=== PATIENT | female | born 1985 | race Caucasian/White ===

== ENCOUNTER → 2018-04-04 09:49 | Outpatient (CLI) | payer MEDICAID, SELFPAY ==
[2018-04-04 12:37] LABS: hCG Titer Quant., Serum 337 mIU/mL (<9 non-preg)
[2018-04-04 15:07] LABS: Chlamydia Trachomatis by PCR Negative (Negative); Neisserai gonorrhoeae by PCR Negative (Negative); Probe Check PASS; Sample Adequacy Control PASS; Specimen Processing Control PASS
[2018-04-10 09:41] LABS: HPV Reflexed? NOT INDICATED
== END ==
PROVIDERS: Visit Provider Obstetrics & Gynecology
DX: Z12.4 Encounter for screening for malignant neoplasm of cervix (principal); Z11.3 Encounter for screening for infections with a predominantly sexual mode of transmission; Z32.01 Encounter for pregnancy test, result positive
CPT/HCPCS: 36415; 84702; 87491; 87591; 88175; G0145

== ENCOUNTER → 2018-04-08 09:43 | Outpatient (CLI) | payer MEDICAID, SELFPAY ==
[2018-04-08 10:48] LABS: hCG Titer Quant., Serum 2263 mIU/mL (<9 non-preg)
== END ==
PROVIDERS: Visit Provider Obstetrics & Gynecology
DX: Z32.01 Encounter for pregnancy test, result positive (principal)
CPT/HCPCS: 36415; 84702

== ENCOUNTER → 2018-04-23 10:20 | Outpatient (CLI) | payer MEDICAID, SELFPAY ==
[2018-04-23 12:27] LABS: Color, Urine Yellow (Yellow); Glucose, Dipstick Normal (Normal); Ketone-Dipstick Negative (Negative); Leukocyte Esterase-Dipstick Negative /ul (Negative); Nitrite-Dipstick Negative (Negative); Occult Blood-Urine Negative /ul (Negative); Protein-Dipstick Negative (Negative); Specific Gravity, Urine 1.015 (1.002-1.030); Urine Bilirubin Dipstick Negative (Negative); Urine Clarity Clear (Clear); Urine Urobilinogen Normal (Normal)
[2018-04-23 12:34] LABS: Absolute Lymphocyte Count 1.65 X10^3/ul (0.83-4.51); Absolute Neutrophil Count 8.2 X10^3/uL (2.0-7.7); Basophil# 0.02 X10^3/uL; Basophil% 0.2 % (0-1); Eosinophil# 0.01 X10^3/uL; Eosinophils% 0.1 % (0-5); Hematocrit 39.1 % (37-47); Lymphocyte # 1.65 X10^3/ul (4.0); Lymphocyte % 15.6 % (19-41); Mean Corp Hgb Conc 33.2 g/gl (32-36); Mean Corpuscular Hgb 32.8 pg (27.0-32.0); Mean Corpuscular Volume 98.7 fL (81-99); Mean Platelet Vol. 10.3 fl (6.2-12.0); Monocyte# 0.71 X10^3/uL; Monocyte% 6.7 % (0-10); Neutrophil # 8.19 X10^3/uL (2.7-7.7); Neutrophil % 77.2 % (47-70); Platelet Count 300 K/mm3 (150-450); RBC Distribution Width CV 12.7 % (11.6-14.6); RBC Distribution Width SD 45.1 fl (35.1-43.9); Red Blood Count 3.96 M/mm3 (4.2-5.4); White Blood Count 10.6 K/mm3 (4.4-11.0)
[2018-04-23 12:35] LABS: POSITIVE COUNT NO; POSITIVE DIFFERENTIAL NO; POSITIVE MORPHOLOGY NO
[2018-04-23 12:51] LABS: Amphetamine Urine VISTA NEGATIVE (<1000 ng/mL); Barbiturate Urine VISTA NEGATIVE (< 200 ng/mL); Benzodiazepine Urine VISTA NEGATIVE (< 200 ng/mL); Cocaine Urine VISTA NEGATIVE (< 300 ng/mL); Ecstacy Urine VISTA NEGATIVE (< 500 ng/mL); Methadone Urine VISTA NEGATIVE (< 300 ng/mL); PCP Urine VISTA NEGATIVE (< 25 ng/mL); THC Urine VISTA NEGATIVE (< 50 ng/mL); Vista UDS pH Range 5
[2018-04-23 13:02] LABS: Thyroid Stim Hormone (TSH) 1.25 uIU/mL (0.358-3.74)
[2018-04-24 10:29] LABS: HIV - WCH Non-Reactive (Nonreactive); Rubella IgG 120.5 IU/mL
[2018-04-25 17:22] LABS: HEPATITIS B SURFACE AG Negative (Negative); Hep C Antibodies <0.1 s/co ratio (0.0-0.9)
[2018-04-26 05:02] LABS: Prenatal RPR NONREACTIVE (NONREACTIVE)
== END ==
PROVIDERS: Visit Provider Obstetrics & Gynecology
DX: Z34.81 Encounter for supervision of other normal pregnancy, first trimester (principal)
CPT/HCPCS: 36415; 80307; 81002; 84443; 85025; 86703; 86762; 86803; 87340

== ENCOUNTER → 2018-09-17 08:44 | Outpatient (CLI) | payer MEDICAID, SELFPAY ==
[2018-09-17 10:44] LABS: Hematocrit 32.3 % (37-47); Hemoglobin 10.7 g/dl (12.0-15.0); Mean Corp Hgb Conc 33.1 g/gl (32-36); Mean Corpuscular Hgb 32.5 pg (27.0-32.0); Mean Corpuscular Volume 98.2 fL (81-99); Mean Platelet Vol. 9.7 fl (6.2-12.0); Platelet Count 260 K/mm3 (150-450); RBC Distribution Width CV 13.3 % (11.6-14.6); RBC Distribution Width SD 47.6 fl (35.1-43.9); Red Blood Count 3.29 M/mm3 (4.2-5.4); White Blood Count 7.4 K/mm3 (4.4-11.0)
[2018-09-17 10:46] LABS: Scan Indicated on CBC? Y/N NO
[2018-09-17 10:48] LABS: Glucose Challenge Gest 1H 50g 163 mg/dL (70-140)
--- OUTSIDE RECORDS SUMMARY | 2018-10-29 21:35 | XMS RPT_ITS ---
:1985 Author Organization OHIP Care Team Providers Name Role Phone GILLES DE LUNA Attending Unavailable GILLES DE LUNA Referring Unavailable Scout Lopez Attending Unavailable Destini Shoemaker Attending Unavailable Destini Shoemaker Attending Unavailable Destini Shoemaker Attending Unavailable Destini Shoemaker Attending Unavailable Destini Shoemaker Referring Unavailable Gilles De Luna Primary Care Unavailable PROBLEMS PROBLEMS DATE TYPE CONDITION / CODE ATTENDING STATUS SOURCE 09/17/2018 Unknown Z34.82 - Encounter Destini Shoemaker Active [facility] supervision [facility] other normal Hospital , second Repository trimester / Z34.82(ICD-10) 05/17/2018 Unknown Z34.81 - Encounter Destini Shoemaker Active [facility] for supervision of Community other normal Hospital , first Repository trimester / Z34.81(ICD-10) 05/14/2018 Unknown Z32.01 - Encounter Destini Shoemaker Active [facility] for Community test, result Hospital positive / Repository Z32.01(ICD-10) 12/26/2017 Active Paresthesia of NA Active [facility] skin / [facility] [place] R20.2(ICD-10) Repository 12/26/2017 Active Other skin changes NA Active [facility] / R23.8(ICD-10) [facility] [place] Repository 12/26/2017 Active Family history of NA Active [facility] diseases of the [facility] [place] skin and Repository subcutaneous tissue / Z84.0(ICD-10) 12/26/2017 Active Muscle weakness NA Active [facility] (generalized) / [facility] [place] M62.81(ICD-10) Repository 12/26/2017 Active Pain in right arm NA Active [facility] / M79.601(ICD-10) [facility] [place] Repository PROCEDURES PROCEDURES No Procedure Records FoundRESULTS RESULTS GESTATIONAL GTT 3HR Collected: 09/30/2018 Status: F Source: BESS 100G 7:30 AM [facility] REPOSITORY Order Comment: Is Patient Fasting? Y TYPE CODE TESTS RESULT OUT OF RANGE REFERENCE UNITS LAB L501.0660 <190 mg/dL Normal GLU GTT- 155 1HR LAB L501.0650 <105 mg/dL Normal GLU 79 GTT-FASTING Result Comment: GLUCOSE TOLERANCE TEST FOR Reference Interval GESTATIONAL DIABETES Fasting <105 mg/dL 1 hour <190 mg/dl 2 hour <165 mg/dl 3 hour <145 mg/dl LAB L501.0670 <165 mg/dL Normal GLU GTT- 2HR 131 LAB L501.0680 <145 L High GLU GTT- 3HR 154 Performed By: #### L500.4710 #### [facility] [place], [address] CBC-COMPLETE BLOOD CNT Collected: 09/17/2018 Status: F Source: BESS NO DIFF 8:50 AM [facility] REPOSITORY TYPE CODE TESTS RESULT OUT OF RANGE REFERENCE UNITS LAB L100.1000 4.4-11.0 K/mm3 Normal WBC 7.4 LAB L100.1200 4.2-5.4 M/mm3 Low RBC 3.29 LAB L100.1300 12.0-15.0 g/dl Low HGB 10.7 LAB L100.1400 37-47 % Low HCT 32.3 LAB L100.1500 81-99 fL Normal MCV 98.2 LAB L100.1600 27.0-32.0 pg High MCH 32.5 LAB L100.1700 32-36 g/gl Normal MCHC 33.1 LAB L100.1810 11.6-14.6 % Normal RDW CV 13.3 LAB L100.1820 35.1-43.9 fl High RDW SD 47.6 LAB L100.1900 150-450 K/mm3 Normal PLT 260 LAB L100.2000 6.2-12.0 fl Normal MPV 9.7 Performed By: #### L100.0500 #### [facility] [address] [place], [address] GLUCOSE CHALLENGE GEST Collected: 09/17/2018 Status: F Source: BESS 1H 50G 8:50 AM [facility] REPOSITORY TYPE CODE TESTS RESULT OUT OF RANGE REFERENCE UNITS LAB L501.0250 70-140 mg/dL High GLU GEST 163 50g 1H Performed By: #### L501.0250 #### [facility] [address] [place], [address] URINE DRUG SCREEN Collected: 04/23/2018 Status: F Source: BESS (VISTA) 10:26 AM [facility] REPOSITORY Order Comment: List of Drugs Taken or Suspected? UNK TYPE CODE TESTS RESULT OUT OF RANGE REFERENCE UNITS LAB L505.0075 TO BE Normal CONFIRMED Result Comment: CONFIRMATORY TESTING FOR ALL POSITIVE URINE DRUG SCREEN RESULTS WILL ONLY BE SENT OUT UPON PHYSICIAN ORDER. VISTA Urine Drug Screen methods provide only preliminary analytical test results. A more specific alternate chemical method must be used in order to obtain a confirmed analytical result. Gas chromatography/mass spectrometery (GC/MS) is the preferred confirmatory method. Clinical consideration and professional judgement should be applied to any drug of abuse test result, particularly when preliminary positive results are used. URINE TCA TESTING MUST BE ORDERED SEPARATELY. USE TEST MNEMONIC: [facility] LAB L505.5005 VISTA UDS PH 5 Normal LAB L505.5015 <1000 ng/mL AMPHETAMINES Normal NEGATIVE LAB L505.5025 < 200 ng/mL BARBITIURATES Normal NEGATIVE LAB L505.5035 < 200 ng/mL BENZODIAZIPINE Normal NEGATIVE LAB L505.5045 < 300 ng/mL COCAINE Normal NEGATIVE LAB L505.5055 < 500 ng/mL ECSTACY Normal NEGATIVE LAB L505.5065 < 300 ng/mL METHADONE Normal NEGATIVE LAB L505.5075 < 300 ng/mL OPIATES Normal NEGATIVE LAB L505.5085 < 25 ng/mL PCP Normal NEGATIVE LAB L505.5095 < 50 ng/mL THC Normal NEGATIVE Performed By: #### L505.4999 #### [facility] [address] [facility] [place], [place], [address] URINALYSIS, ROUTINE Collected: 04/23/2018 Status: F Source: [place] (DIPSTICK) 10:26 AM [facility] REPOSITORY Order Comment: How was Urine Obtained? Urine, Random TYPE CODE TESTS RESULT OUT OF RANGE REFERENCE UNITS LAB L400.3000 Yellow COLOR Normal Yellow LAB L400.3050 Clear Normal CLARITY Clear LAB L400.3200 Normal mg/dl Normal GLUCOSE, UR Normal LAB L400.3300 Negative mg/dL Normal BILIRUBIN URINE Negative LAB L400.3400 Negative mg/dl Normal KETONE UR Negative LAB L400.3465 1.002-1.030 Normal SP.GR. DIPSTX 1.015 LAB L400.3550 5.0 - 8.0 pH UR Normal 6.0 LAB L400.3600 Negative mg/dl PROT Normal DIPSTX Negative LAB L400.3700 Normal mg/dl Normal UROBILI Normal LAB L400.3750 Negative Normal NITRITE UR Negative LAB L400.3780 Negative /ul Normal OCCULT BLOOD-UR Negative LAB L400.3800 Negative /ul LEUK Normal ESTERASE Negative Performed By: #### L400.2010 #### [facility] [address] [facility] [place], [place], [address] CBC W/DIFF, AUTOMATED Collected: 04/23/2018 Status: F Source: [place] 10:26 AM [facility] REPOSITORY TYPE CODE TESTS RESULT OUT OF RANGE REFERENCE UNITS LAB L100.1000 4.4-11.0 K/mm3 Normal WBC 10.6 LAB L100.1200 4.2-5.4 M/mm3 Low RBC 3.96 LAB L100.1300 12.0-15.0 g/dl Normal HGB 13.0 LAB L100.1400 37-47 % Normal HCT 39.1 LAB L100.1500 81-99 fL Normal MCV 98.7 LAB L100.1600 27.0-32.0 pg High MCH 32.8 LAB L100.1700 32-36 g/gl Normal MCHC 33.2 LAB L100.1810 11.6-14.6 % Normal RDW CV 12.7 LAB L100.1820 35.1-43.9 fl High RDW SD 45.1 LAB L100.1900 150-450 K/mm3 Normal PLT 300 LAB L100.2000 6.2-12.0 fl Normal MPV 10.3 LAB L100.2100 47-70 % High NEUT% 77.2 LAB L100.2200 19-41 % Low LY% 15.6 LAB L100.2300 0-10 % Normal MONO% 6.7 LAB L100.2400 0-5 % Normal EO% 0.1 LAB L100.2500 0-1 % Normal BASO% 0.2 LAB L100.2550 0.0-0.9 % Normal IM GRAN % 0.200 Result Comment: IG% - Immature Granulocytes (promyelocytes, myelocytes and metamyelocytes) > 1% indicates that a LEFT SHIFT is Present. LAB L100.2620 2.0-7.7 X10 3/uL High Absolute Neut 8.2 LAB L100.2720 0.83-4.51 X10 3/ul Normal Absolute Lymph 1.65 Performed By: #### L100.0100 #### [facility] [place], [address] THYROID STIM HORMONE Collected: 04/23/2018 Status: F Source: BESS (TSH) 10:26 AM [facility] REPOSITORY TYPE CODE TESTS RESULT OUT OF RANGE REFERENCE UNITS LAB L501.9520 0.358-3.74 uIU/mL Normal TSH 1.25 Performed By: #### L501.9520 #### [facility] [address] [place], [place], [address] T AND S-NO Collected: 04/23/2018 Status: F Source: BESS CHARGE W/PNP 10:26 AM [facility] REPOSITORY Order Comment: Reason for Type AND Screen/Red Cells: Surgery? N TYPE CODE TESTS RESULT OUT OF RANGE REFERENCE UNITS LAB B10.0800 A Normal BLOOD POSITIVE TYPE GEL LAB B100.4050 Normal Ab SCREEN NEGATIVE GEL Performed By: #### B100.7550 #### [facility] [address] [place], [place], [address] RUBELLA IGG Collected: 04/23/2018 Status: F Source: BESS 10:26 AM [facility] REPOSITORY TYPE CODE TESTS RESULT OUT OF RANGE REFERENCE UNITS LAB L509.4000 IU/mL Normal Rubella IgG 120.5 Result Comment: Antibody results Interpretation of Immune Status < 5 IU/ml Presumed Non-immune 5 - < 10 IU/ml Equivocal > or = 10 IU/ml Presumed Immune Performed By: #### L509.4000, L3890.6005 #### [facility] [place], [place], [id number] HIV - W[facility] Collected: 04/23/2018 Status: F Source: [place] 10:26 AM [facility] REPOSITORY TYPE CODE TESTS RESULT OUT OF RANGE REFERENCE UNITS LAB L3890.6005 Nonreactive Normal HIV - [facility] Non-Reactive Performed By: #### L509.4000, L3890.6005 #### [facility] [address] [place] [address], [id number] HEPATITIS B SURFACE Collected: 04/23/2018 Status: F Source: BESS AG 10:26 AM [facility] REPOSITORY TYPE CODE TESTS RESULT OUT OF RANGE REFERENCE UNITS LAB L3100.0400 Negative Normal HB Negative SURF AG Result Comment: Performed at: - [facility] [id number] Volunteer Patient Representative: Harpreet Isaac PhD, Phone: [phone] Performed By: #### L3100.0390, L3100.0625 #### [facility] (refer to report for specific site) refer to report for address and phone number HEPATITIS C ANTIBODIES Collected: 04/23/2018 Status: F Source: BESS 10:26 AM [facility] REPOSITORY TYPE CODE TESTS RESULT OUT OF RANGE REFERENCE UNITS LAB L3100.0650 0.0-0.9 s/co ratio Normal HEP C AB <0.1 Result Comment: Negative: < 0.8 Indeterminate: 0.8 - 0.9 Positive: > 0.9 The CDC recommends that a positive HCV antibody result be followed up with a HCV Nucleic Acid Amplification test (605095). Performed By: #### L3100.0390, L3100.0625 #### [facility] (refer to report for specific site) refer to report for address and phone number RPR Collected: 04/23/2018 Status: F Source: [place] 10:26 AM [facility] REPOSITORY TYPE CODE TESTS RESULT OUT OF REFERENCE UNITS RANGE LAB L700.5100 NONREACTIVE Normal RPR NONREACTIVE Performed By: #### L700.5100 #### [facility] [address] [place], [address] HCG TITER QUANT., Collected: 04/08/2018 Status: F Source: [place] SERUM 9:45 AM [facility] REPOSITORY TYPE CODE TESTS RESULT OUT OF RANGE REFERENCE UNITS LAB L700.8000 <9 non-preg mIU/mL High HCG 2263 QUANT. Performed By: #### L700.8000 #### [facility] [address] [place], [address] HCG TITER QUANT., Collected: 04/04/2018 Status: F Source: [place] SERUM 9:51 AM [facility] REPOSITORY TYPE CODE TESTS RESULT OUT OF RANGE REFERENCE UNITS LAB L700.8000 <9 non-preg mIU/mL High HCG 337 QUANT. Performed By: #### L700.8000 #### [facility] [address] [place], [address] CT/NG WCH BY PCR Collected: 04/04/2018 Status: F Source: [place] 9:45 AM [facility] REPOSITORY TYPE CODE TESTS RESULT OUT OF RANGE REFERENCE UNITS LAB L8200.2100 Negative Normal Chlam Negative Trac PCR LAB L8200.2200 Negative Normal NG by Negative PCR Performed By: #### L8200.2000 #### [facility] [address] [place], [address] PAP I-G W/RFX HRHPV Collected: 04/04/2018 Status: F Source: BESS 9:45 AM [facility] REPOSITORY Order Comment: CYTOLOGY INFORMATION: - CLINICAL INFORMATION: - DATE LMP/MENOPAUSE: 02/27/18 LMP - COLLECTION VIAL: Thin Prep Vial - TRUCK AND TRANSPORT MECHANIC SOURCE: CERVICAL/ENDOCERVICAL - COLLECTION TECHNIQUE: BRUSH/SPATULA Specimen Comment: [id number] Specimen Comment: No. of containers..01 ThinPrep Vial TYPE CODE TESTS RESULT OUT OF RANGE REFERENCE UNITS LAB L7400.0800 . Normal DIAGN Comment Result Comment: NEGATIVE FOR INTRAEPITHELIAL LESION AND MALIGNANCY. THIS SPECIMEN WAS RESCREENED PART OF OUR CARPET MECHANIC PROGRAM. LAB L7400.0900 . Normal ADEQ Comment Result Comment: Satisfactory for evaluation. Endocervical and/or squamous metaplastic cells (endocervical component) are present. LAB L7400.1400 . Normal PERFORM Comment Result Comment: Kelvin Wright, Head Kiln Operator (ASCP) LAB L7400.1500 . Normal QC Comment REV Result Comment: Chanda Eckert, Supervisory Head Kiln Operator (ASC) LAB L7400.2575 . Normal TEST METHOD Comment Result Comment: This liquid based ThinPrep(R) pap test was screened with the use of an image guided system. LAB L7400.2600 . Normal . COMM LAB L7400.2700 . Normal PAPSMR Comment Result Comment: The Pap smear is a screening test designed to aid in the detection of premalignant and malignant conditions of the uterine cervix. It is not a diagnostic procedure and should not be used as the sole means of detecting cervical cancer. Both false-positive and false-negative reports do occur. LAB L7400.2800 . Normal HPV RFLX Comment Result Comment: The HPV DNA reflex criteria were not met with this specimen result therefore, no HPV testing was performed. Performed at: - [facility] [id number] Volunteer Patient Representative: Socorro Baker MD, Phone: [phone] Performed By: #### L7400.0350 #### [facility] (refer to report for specific site) refer to report for address and phone number PROGRESS Observed: 2017 Status: COMPLETED Source: [place] 8:31 AM [facility] REPOSITORY HNO ID: [id number] Author: Gilles De Luna Service: (none) Author Type: Physician Type: Progress Notes Filed: 2017 8:54 AM Note Text: CC: Gennaro Orona is a 32 year old female who presents to the office for tingling HPI: Right hand tremor, dropping objects intermittently, symptoms for >3 months, is right hand dominant. Tingling and decreased sensation in fingers / hand on right, worse tremor with movement such as when trying to bar tend etc. No known injuries- did have incision of abscess in axilla on right in the last 1 year. No MVA. Does admit to intermittent tension and pain in neck, no known whiplash injury. No fevers or chills. Sometimes pain into hand and forearm. Did experience 1-2 episodes of skin color change in right hand 4th finger- turned blue. Mother does have lupus. PAST MEDICAL HISTORY Diagnosis Date - Anxiety PAST SURGICAL HISTORY Procedure Laterality Date - DANDC, DIAG AND/OR THERAPEUTIC Dilation AND curettage Current Outpatient Prescriptions: NUVARING 0.12-0.015 mg/24 hr vaginal ring INSERT VAGINALLY AND LEAVE IN PLACE FOR 3 WEEKS THEN REMOVE FOR 1 WEEK SUMAtriptan (IMITREX) 50 mg tablet TAKE 1 TABLET BY MOUTH AT ONSET OF MIGRAINE HEADACHE, OKAY TO REPEAT IN 1 HOUR SUMAtriptan (IMITREX) 50 mg tablet Take 1 tablet PO at onset of migraine Headache, okay to repeat in 1 hour montelukast (SINGULAIR) 10 mg tablet TAKE 1 TABLET BY MOUTH DAILY AT BEDTIME. FOR ALLERGIES cyclobenzaprine (FLEXERIL) 10 mg tablet Take 1 tablet by mouth three times daily as needed for Muscle Spasm. benzocaine-menthol (CEPACOL) 15-2.6 mg lozg lozenge Take 1 Lozenge by mouth every 3 hours as needed. No current facility-administered medications for this visit. ALLERGIES Allergen Reactions - Seasonal Allergies Other: See Comments Congestion, sneezing Social History Marital status: Spouse name: Years of education: Number of children: 1 Occupational History Occupation Employer Comment [employer] Social History Main Topics Smoking status: Never Smoker Smokeless status: Never Used Alcohol use: No Drug use: No Sexual activity: Yes Partners with: Male ROS: See HPI PE: BP 136/80 Pulse 76 Temp (Src) 97.4 (Left Tympanic) Resp 16 Wt 164 lb (74.4kg) LMP 2017 Gen: AANDOX3, NAD, non-toxic appearing HEENT: PERRLA, EOMs intact b/l, nares without drainage, pharynx without erythema, exudate, lesions, or drainage. Uvula midline. Neck: No LAD, no thyromegaly, no meningismus. CV: RRR, no murmur Lungs: CTA b/l, no wheezing Skin: No rashes, lesions, or wounds on exposed skin. Decreased sensation in right hand fingers 1-3, hypersensitivity fingers 4/5 on right hand vs. 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 + resting and intention tremor on right hand/forearm, slightly decreased strength in right arm/forearm vs. Left side. DTR normal ASSESSMENT/PLAN: 1. Paresthesias in right hand - ICD9: 782.0, ICD10: R20.2 (primary diagnosis) - labs as ordered, EMG/NCT and xray of cervical spine as ordered, concerns for cervical nerve impingement vs. Carpal tunnel vs. Lupus or central concern. MRI brain if all other testing is normal/negative - EMG(NEURO/NI) - SED RATE WESTERGREN - C-REACTIVE PROTEIN (CRP) - MINOO BY IFA SCREEN - RHEUMATOID FACTOR BL - COMP METABOLIC PANEL - CBC - TSH BLD - T4 FREE/FREE THYROX 2. Change of skin color - ICD9: 782.9, ICD10: R23.8 - labs as ordered, EMG/NCT and xray of cervical spine as ordered, concerns for cervical nerve impingement vs. Carpal tunnel vs. Lupus or central concern. MRI brain if all other testing is normal/negative - EMG(NEURO/NI) - SED RATE WESTERGREN - C-REACTIVE PROTEIN (CRP) - MINOO BY IFA SCREEN - RHEUMATOID FACTOR BL - COMP METABOLIC PANEL - CBC - TSH BLD - T4 FREE/FREE THYROX 3. Family history of lupus erythematosus - ICD9: V19.8, ICD10: Z84.0 - labs as ordered, EMG/NCT and xray of cervical spine as ordered, concerns for cervical nerve impingement vs. Carpal tunnel vs. Lupus or central concern. MRI brain if all other testing is normal/negative - EMG(NEURO/NI) - SED RATE WESTERGR[place] - C-REACTIVE PROTEIN (CRP) - MINOO BY IFA SCREEN - RHEUMATOID FACTOR BL - COMP METABOLIC PANEL - CBC 4. Hand muscle weakness - ICD9: 729.89, ICD10: M62.81 - labs as ordered, EMG/NCT and xray of cervical spine as ordered, concerns for cervical nerve impingement vs. Carpal tunnel vs. Lupus or central concern. MRI brain if all other testing is normal/negative - EMG(NEURO/NI) - SED RATE [place] - C-REACTIVE PROTEIN (CRP) - MINOO BY IFA SCREEN - RHEUMATOID FACTOR BL - COMP METABOLIC PANEL - CBC Gilles De Luna DO Return if no improvement. Follow up with Gilles De Luna DO. Discussed risks, benefits, alternatives, and potential side effects of medications. Patient/Guardian expressed understanding and agreed with the plan. See patient instructions. Gilles De Luna DO [address] [place] [address] ALLERGIES ALLERGIES DATE TYPE / CODE NAME / CODE REACTION SEVERITY SOURCE 03/23/2014 Environ/420 SEASONAL OTHER: SEE C [facility] [id number](SNOM ALLERGIES [facility] ED CT) Repository ENCOUNTERS ENCOUNTERS ADMIT/DISCHARGE ACCOUNT ADMITTING ENCOUNTER LOCATION SOURCE NUMBER CLASS 09/30/2018 [id number] [facility] ing:LAB Repository 09/17/2018 [id number] [facility] ing:WOBLAB Repository 04/23/2018 [id number] [facility] ing:WOBLAB Repository 04/08/2018 [id number] [facility] ing:WOBLAB Repository 04/04/2018 [id number] [facility] ing:WOBLAB Repository 12/26/2017/12/27/19 [id number] Ambulatory [address] Repository 12/07/2017/12/07/[id number] Repository PAYERS PAYERS ENCOUNTER GUARANTOR PAYER SUBSCRIBER SOURCE 09/30/2018 GENNARO [place] [id number] [facility] Number: [facility] [address]Vka: [phone] [id number] Repository [phone] (HP) Date:2018-09-17[address]ATTN: [place] [address]QU: 09/30/2018 Secondary NOT GIVENUNK [facility] Insurance:SELF PAY [facility] Number: Effective Repository Date:2018-09-17 09/17/2018 GENNARO Primary GENNARO [id number] [place] Insurance:[address] Number: Hospital [address]Xjz: (548) [id number] Repository [phone] (HP) Date:2018-09-17[address]ATTN: [place] [address]ER: 09/17/2018 Secondary NOT GIVENUNK [facility] Insurance:SELF PAY [facility] Number: Effective Repository Date:2018-09-17 04/23/2018 GENNARO Primary GENNARO [place] [id number] Insurance:[facility] Number: [facility] [id number] Repository [place] Date:2018-04-23P O [address]Cda: [phone] [address]ATTN: CLAIMS [phone] (HP) [place] [address]QU: 04/23/2018 Secondary NOT GIVENUNK [place] Insurance:SELF PAY [facility] Number: Effective Repository Date:2018-04-23 04/08/2018 GENNARO Primary GENNARO [id number] Insurance:[facility] Number: [facility] [id number] Repository [place] Date:2018-04-08P O [address]Oca: (147) [address]ATTN: CLAIMS [phone] (HP) [place] [address]SI: 04/08/2018 Secondary NOT GIVENUNK [facility] Insurance:SELF PAY [facility] Number: Effective Repository Date:2018-04-08 04/04/2018 GENNARO Primary GENNARO [place] [id number] Insurance:TONIJUNI CONNELL [facility] Number: [facility] [id number] Repository [place] Date:2018-04-04P O [address]Skl: [phone]) RNT 8640ATTN: CLAIMS [phone] () [place] [address]OV: 04/04/2018 Secondary NOT GIVENDEJUAN [place] Insurance:SELF PAY [facility] Number: Effective Repository Date:2018-04-04
== END ==
PROVIDERS: Visit Provider Obstetrics & Gynecology
DX: Z34.82 Encounter for supervision of other normal pregnancy, second trimester (principal)
CPT/HCPCS: 36415; 82950; 85027

== ENCOUNTER → 2018-09-30 07:03 | Outpatient (CLI) | payer MEDICAID, SELFPAY ==
[2018-09-30 10:36] LABS: Glucose GTT-Gestational 1 Hr 155 mg/dL (<190)
[2018-09-30 10:40] LABS: Glucose GTT-Gestation. Fasting 79 mg/dL (<105)
[2018-09-30 10:40] LABS: Glucose GTT-Gestational 2 Hr 131 mg/dL (<165)
[2018-09-30 11:57] LABS: Glucose GTT-Gestational 3 Hr 154 L (<145)
== END ==
PROVIDERS: Family Provider Student in an Organized Health Care Education/Training Program; PCP Student in an Organized Health Care Education/Training Program; Referring Provider Obstetrics & Gynecology; Visit Provider Obstetrics & Gynecology
DX: O24.912 Unspecified diabetes mellitus in pregnancy, second trimester (principal); Z3A.00 Weeks of gestation of pregnancy not specified
CPT/HCPCS: 36415; 82951; 82952

== ENCOUNTER → 2018-11-11 09:55 | Outpatient (CLI) | payer MEDICAID, SELFPAY ==
--- OUTSIDE RECORDS SUMMARY | 2019-01-13 19:57 | XMS RPT_ITS ---
:1985 Author Organization [facility] Care Team Providers Name Role Phone GILLES MCADAMS Referring Unavailable GILLES MCADAMS Attending Unavailable Destini Shoemaker Attending Unavailable Scout Lopez Attending Unavailable Destini Shoemaker Attending Unavailable Destini Shoemaker Attending Unavailable Destini Shoemaker Attending Unavailable Destini Shoemaker Attending Unavailable Destini Shoemaker Referring Unavailable Gilles Mcadams Primary Care Unavailable PROBLEMS PROBLEMS DATE TYPE CONDITION / CODE ATTENDING STATUS SOURCE 11/05/2018 Unknown O24.912 - ChandlerDestini garay Active [place] Unspecified [facility] diabetes mellitus Hospital in , Repository second trimester / O24.912(ICD-10) 09/17/2018 Unknown Z34.82 - Encounter YoniduyDestini garay Active [place] for supervision of Community other normal Hospital , second Repository trimester / Z34.82(ICD-10) 05/17/2018 Unknown Z34.81 - Encounter Sahara Destini Active [place] for supervision of Community other normal Hospital , first Repository trimester / Z34.81(ICD-10) 05/14/2018 Unknown Z32.01 - Encounter SaharaDestini Active [place] for Community test, result Hospital positive / Repository Z32.01(ICD-10) 12/26/2017 Active Paresthesia of NA Active [facility] skin / [place] R20.2(ICD-10) Repository 12/26/2017 Active Other skin changes NA Active [facility] / R23.8(ICD-10) [place] Repository 12/26/2017 Active Family history of NA Active [facility] diseases of the [place] skin and Repository subcutaneous tissue / Z84.0(ICD-10) 12/26/2017 Active Muscle weakness NA Active [facility] (generalized) / [place] M62.81(ICD-10) Repository 12/26/2017 Active Pain in right arm NA Active [facility] / M79.601(ICD-10) [place] Repository PROCEDURES PROCEDURES No Procedure Records FoundRESULTS RESULTS Observed: 11/11/2018 Status: F Source: BESS CULTURE, GROUP B 9:00 AM [facility] STREPTOCOCCUS REPOSITORY HERNANDO Culture Group B Beta Streptococcus is not isolated. Performed By: #### M100.1800 #### [facility] [address] [place], [address] GESTATIONAL GTT 3HR Collected: 09/30/2018 Status: F Source: BESS 100G 7:30 AM [facility] REPOSITORY Order Comment: Is Patient Fasting? Y [...] 3HR 154 Performed By: #### L500.4710 #### [facility] [address] [place], [address] CBC-COMPLETE BLOOD CNT Collected: 09/17/2018 Status: F Source: BESS NO DIFF 8:50 AM [facility] REPOSITORY TYPE CODE TESTS RESULT OUT OF [...] MPV 9.7 Performed By: #### L100.0500 #### [facility] [address] [place], [address] GLUCOSE CHALLENGE GEST Collected: 09/17/2018 Status: F Source: BESS 1H 50G 8:50 AM [facility] REPOSITORY TYPE CODE TESTS RESULT OUT OF RANGE REFERENCE UNITS LAB L501.0250 70-140 mg/dL High GLU GEST 163 50g 1H Performed By: #### L501.0250 #### [facility] [address] [place], [address] URINE DRUG SCREEN Collected: 04/23/2018 Status: F Source: BESS (VISTA) 10:26 AM [facility] REPOSITORY Order Comment: List of Drugs Taken [...] ng/mL THC Normal NEGATIVE Performed By: #### L505.5000 #### [facility] [address] [place], [address] URINALYSIS, ROUTINE Collected: 04/23/2018 Status: F Source: BESS (DIPSTICK) 10:26 AM [facility] REPOSITORY Order Comment: How was Urine Obtained? [...] ESTERASE Negative Performed By: #### L400.2010 #### [facility] [place], [address] CBC W/DIFF, AUTOMATED Collected: 04/23/2018 Status: F Source: SCOTT BAR 10:26 AM [facility] REPOSITORY TYPE CODE TESTS RESULT OUT OF [...] Lymph 1.65 Performed By: #### L100.0100 #### [facility] [address] [place], [place], [address] THYROID STIM HORMONE Collected: 04/23/2018 Status: F Source: SCOTT BAR (TSH) 10:26 AM [facility] REPOSITORY TYPE CODE TESTS RESULT OUT OF RANGE REFERENCE UNITS LAB L501.9520 0.358-3.74 uIU/mL Normal TSH 1.25 Performed By: #### L501.9520 #### [facility] [address] [place], [address] T AND S-NO Collected: 04/23/2018 Status: F Source: BESS CHARGE W/PNP 10:26 AM [facility] REPOSITORY Order Comment: Reason for Type AND Screen/Red Cells: Surgery? N TYPE CODE TESTS RESULT OUT OF RANGE REFERENCE UNITS LAB B10.0800 A Normal BLOOD POSITIVE TYPE GEL LAB B100.4050 Normal Ab SCREEN NEGATIVE GEL Performed By: #### B100.7550 #### [facility] [address], [address] RUBELLA IGG Collected: 04/23/2018 Status: F Source: SCOTT BAR 10:26 AM [facility] REPOSITORY TYPE CODE TESTS RESULT OUT OF RANGE REFERENCE UNITS LAB L509.4000 IU/mL Normal Rubella IgG 120.5 Result Comment: Antibody results Interpretation of Immune Status < 5 IU/ml Presumed Non-immune 5 - < 10 IU/ml Equivocal > or = 10 IU/ml Presumed Immune Performed By: #### L509.4000, L3890.6005 #### [facility] [address] [place], [address] HIV - [facility] Collected: 04/23/2018 Status: F Source: SCOTT BAR 10:26 AM [facility] REPOSITORY TYPE CODE TESTS RESULT OUT OF RANGE REFERENCE UNITS LAB L3890.6005 Nonreactive Normal HIV - [facility] Non-Reactive Performed By: #### L509.4000, L3890.6005 #### [facility] [address] [place], [place], [address] HEPATITIS B SURFACE Collected: 04/23/2018 Status: F Source: BESS AG 10:26 AM [facility] REPOSITORY TYPE CODE TESTS RESULT OUT OF RANGE REFERENCE UNITS LAB L3100.0400 Negative Normal HB Negative SURF AG Result Comment: Performed at: [facility] [id number] Pharmacist Critical Care: Harpreet Isaac PhD, Phone: [phone] Performed By: #### L3100.0390, L3100.0625 #### [facility] (refer to report for specific site) refer to report for address and phone number HEPATITIS C ANTIBODIES Collected: 04/23/2018 Status: F Source: BESS 10:26 AM [facility] REPOSITORY TYPE CODE TESTS RESULT OUT OF RANGE REFERENCE UNITS LAB L3100.0650 0.0-0.9 s/co ratio Normal HEP C AB <0.1 Result Comment: Negative: < 0.8 Indeterminate: 0.8 - 0.9 Positive: > 0.9 The CDC recommends that a positive HCV antibody result be followed up with a HCV Nucleic Acid Amplification test (336471). Performed By: #### L3100.0390, L3100.0625 #### [facility] (refer to report for specific site) refer to report for address and phone number RPR Collected: 04/23/2018 Status: F Source: BESS 10:26 AM [facility] REPOSITORY TYPE CODE TESTS RESULT OUT OF REFERENCE UNITS RANGE LAB L700.5100 NONREACTIVE Normal RPR NONREACTIVE Performed By: #### L700.5100 #### [facility] [address] [place], [place], [address] HCG TITER QUANT., Collected: 04/08/2018 Status: F Source: SCOTT BAR SERUM 9:45 AM [facility] REPOSITORY TYPE CODE TESTS RESULT OUT OF RANGE REFERENCE UNITS LAB L700.8000 <9 non-preg mIU/mL High HCG 2263 QUANT. Performed By: #### L700.8000 #### [facility] [address] [place], [place], [address] HCG TITER QUANT., Collected: 04/04/2018 Status: F Source: BESS SERUM 9:51 AM [facility] REPOSITORY TYPE CODE TESTS RESULT OUT OF RANGE REFERENCE UNITS LAB L700.8000 <9 non-preg mIU/mL High HCG 337 QUANT. Performed By: #### L700.8000 #### [facility] [address] [place], [address] CT/NG [facility] BY PCR Collected: 04/04/2018 Status: F Source: SCOTT BAR 9:45 AM [facility] REPOSITORY TYPE CODE TESTS RESULT OUT OF RANGE REFERENCE UNITS LAB L8200.2100 Negative Normal Chlam Negative Trac PCR LAB L8200.2200 Negative Normal NG by Negative PCR Performed By: #### L8200.2000 #### [facility] [address] [place], [address] PAP I-G W/RFX HRHPV Collected: 04/04/2018 Status: F Source: SCOTT BAR 9:45 AM [facility] REPOSITORY Order Comment: CYTOLOGY INFORMATION: - CLINICAL INFORMATION: - DATE LMP/MENOPAUSE: 02/27/18 LMP - COLLECTION VIAL: Thin Prep Vial - CONFERENCE PRODUCER SOURCE: CERVICAL/ENDOCERVICAL - COLLECTION TECHNIQUE: BRUSH/SPATULA Specimen Comment: [id number] Specimen Comment: No. of containers..01 ThinPrep Vial TYPE CODE TESTS RESULT OUT OF RANGE REFERENCE UNITS LAB L7400.0800 . Normal DIAGN Comment Result Comment: NEGATIVE FOR INTRAEPITHELIAL LESION AND MALIGNANCY. THIS SPECIMEN WAS RESCREENED PART OF OUR RAPIER INSERTION LOOM FIXER PROGRAM. LAB L7400.0900 . Normal ADEQ Comment Result Comment: Satisfactory for evaluation. Endocervical and/or squamous metaplastic cells (endocervical component) are present. LAB L7400.1400 . Normal PERFORM Comment Result Comment: Kelvin Wright, Boat Laborer (ASCP) LAB L7400.1500 . Normal QC Comment REV Result Comment: Chanda Eckert, Supervisory Boat Laborer (ASCP) LAB L7400.2575 . Normal TEST METHOD Comment [...] HPV testing was performed. Performed at: - [facility] [id number] Pharmacist Critical Care: Socorro Baker MD, Phone: [phone] Performed By: #### L7400.0350 #### [facility] (refer to report for specific site) refer to report for address and phone number PROGRESS Observed: 2017 Status: COMPLETED Source: HARPER 8:31 AM [facility] REPOSITORY HNO ID: [id number] Author: Gilles Mcadams Service: (none) Author Type: Physician Type: Progress Notes Filed: 2017 8:54 AM Note Text: CC: Gennaro Trinidad is a 32 year old female who [...] children: 1 Occupational History Occupation Employer Comment [employer] Social History Main Topics Smoking status: Never [...] on right hand vs. 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 + resting and [...] - COMP METABOLIC PANEL - CBC Gilles Mcadams DO Return if no improvement. Follow up with Gilles Mcadams DO. Discussed risks, benefits, alternatives, and potential side effects of medications. Patient/Guardian expressed understanding and agreed with the plan. See patient instructions. Gilles Mcadams DO [address] [place] [address] ALLERGIES ALLERGIES DATE TYPE / CODE NAME / CODE REACTION SEVERITY SOURCE 03/23/2014 Environ/420 SEASONAL OTHER: SEE [facility] [id number](SN ALLERGIES [facility] ED CT) Repository ENCOUNTERS ENCOUNTERS ADMIT/DISCHARGE ACCOUNT ADMITTING ENCOUNTER LOCATION SOURCE NUMBER CLASS 11/11/2018 [id number] Ambulatory [facility] ing:LABSPEC Repository 09/30/2018 [id number] Ambulatory [facility] ing:LAB Repository 09/17/2018 [id number] Ambulatory [facility] ing:WOBLAB Repository 04/23/2018 [id number] Ambulatory [facility] ing:WOBLAB Repository 04/08/2018 [id number] Ambulatory [facility] ing:WOBLAB Repository 04/04/2018 [id number] Ambulatory [facility] ing:WOBLAB Repository 12/26/2017/12/27/19 [id number] Ambulatory [address] Repository 12/07/2017/12/07/19 [id number] Ambulatory [address] Repository PAYERS PAYERS ENCOUNTER GUARANTOR PAYER SUBSCRIBER SOURCE 11/11/2018 GENNARO Luna Primary GENNARO Cheryl KingErmine [id number] CR [facility] [address] Number: [id number] [address]Lfc: [phone]) [id number] Repository [phone] () Date:2018-11-11[address]ATTN: [place] [address]KY: 11/11/2018 Secondary NOT GIVENUNK [place] Insurance:SELF PAY [facility] [place] Number: Effective Repository Date:2018-11-11 09/30/2018 GENNARO ANDUJARICA Cheryl Bess [id number] CR [facility] [address] Number: [id number] [address]Rdt: [phone]) [id number] Repository [phone] () Date:2018-09-17[address]ATTN: [place] [address]JI: 09/30/2018 Secondary NOT GIVENUNK Bess Insurance:SELF PAY [facility] [place] Number: Effective Repository Date:2018-09-17 09/17/2018 GENNARO Kellogg [id number] [place] Insurance:[address] Number: [facility] [address]Lzm: [phone] [id number] Repository [phone] (HP) Date:2018-09-17[address]ATTN: [place] [address]CX: 09/17/2018 Secondary NOT GIVENUNK [place] Insurance:SELF PAY [facility] Number: Effective Repository Date:2018-09-17 04/23/2018 GENNARO Primary GENNARO [id number] Insurance:[facility] Number: [facility] [id number] Repository [place] Date:2018-04-23P O [address]Ilu: [phone] [address]ATTN: CLAIMS [phone] (HP) [place] [address]BJ: 04/23/2018 Secondary NOT GIVENUNK E[place] Insurance:SELF PAY [facility] Number: Effective Repository Date:2018-04-23 04/08/2018 GENNARO Primary GENNARO [id number] Insurance:[facility] Number: [facility] [id number] Repository [place] Date:2018-04-08P O [address]Sll: [phone]) [address]ATTN: CLAIMS [phone] (HP) [place] [address]PP: 04/08/2018 Secondary NOT GIVENUNK E[place] Insurance:SELF PAY [facility] Number: Effective Repository Date:2018-04-08 04/04/2018 GENNARO Primary GENNARO [id number] Insurance:[facility] Number: [facility] [id number] [facility] [place] Date:2018-04-04P O [address]Scn: [phone]) [address]ATTN: CLAIMS [phone] (HP) [place] [address]EH: 04/04/2018 Secondary NOT GIVENUNK Bess Insurance:SELF PAY [facility] Effective Repository Date:2018-04-04
== END ==
PROVIDERS: Visit Provider Obstetrics & Gynecology
DX: Z36.85 Encounter for antenatal screening for Streptococcus B (principal)
CPT/HCPCS: 87081

== ENCOUNTER 2018-12-02 20:45 | Inpatient (IN) | payer MEDICAID, SELFPAY ==
[2018-12-02 19:59] VITALS: BMI 31.9
[2018-12-02 20:34] LABS: ROM Internal Control Test YES-OK TO RESULT pt. (Internal QC)
[2018-12-02 20:35] LABS: Record Kit Lot#, ROM+ J7836
[2018-12-02 20:36] LABS: ROM Patient Test POSITIVE (Negative)
[2018-12-02] MEDS: Lactated Ringers 1,000 ML 50 ML IV (21:00)
[2018-12-02 21:27] LABS: Hematocrit 34.1 % (37-47); Hemoglobin 11.2 g/dl (12.0-15.0); Mean Corp Hgb Conc 32.8 g/gl (32-36); Mean Corpuscular Hgb 32.5 pg (27.0-32.0); Mean Corpuscular Volume 98.8 fL (81-99); Mean Platelet Vol. 10.9 fl (6.2-12.0); Platelet Count 222 K/mm3 (150-450); RBC Distribution Width CV 13.4 % (11.6-14.6); RBC Distribution Width SD 48.6 fl (35.1-43.9); Red Blood Count 3.45 M/mm3 (4.2-5.4); White Blood Count 8.3 K/mm3 (4.4-11.0)
[2018-12-02 21:28] LABS: Scan Indicated on CBC? Y/N NO
[2018-12-02 21:41] LABS: Protein:Creat Ratio 143 mg/g CRE (0-200)
[2018-12-02 21:46] LABS: AST(SGOT) 19 U/L (15-37); Alanine Aminotransfer ALT/SGPT 14 U/L (13-56); Creatinine, Serum 0.48 mg/dL (0.55-1.02); EST Glomerular Filtration Rate 155 mL/min (>60); Est Glom Filt Rate - Afr Amer 188 mL/min (>60); Estimated Creatinine Clearance 142.61 ml/min; Uric Acid 4.6 mg/dL (2.6-6.0)
[2018-12-02 21:54] LABS: Partial Thromboplast Time 28.1 Seconds (24.1-36.2); Prothrombin Time (Protime)PT. 13.2 SECONDS (11.7-14.9)
[2018-12-03] MEDS: Lactated Ringers 1,000 ML 50 ML IV ×4 (00:04→07:52)
[2018-12-03] MEDS: fentaNYL-bupivacaine (epidural) 100 ML BAG EPIDURAL ×3 (00:37→09:54)
[2018-12-03] MEDS: Ondansetron 4 MG/2 ML Vial IV (03:06)
[2018-12-03] MEDS: Oxytocin 30 units/NS 500 ml 30 UNITS/500 ML IV.SOLN 334 UNITS IV (10:30)
[2018-12-03] MEDS: Oxytocin 30 units/NS 500 ml 30 UNITS/500 ML IV.SOLN 167 UNITS IV (11:02)
--- NOTE | 2018-12-03 14:42 | PCM.OB.VAG ---
- Problem List (1) 38 weeks gestation of Status: Acute Vaginal Delivery Maternal Presentation: Spontaneous Rupture of Membranes Method of Induction: Pitocin Amniotic Membrane Rupture Type: Spontaneous at home Rupture of Membrane time: 1630h 12/02/18 Amniotic Fluid Description: Lightly stained meconium Final MARLENA: 12/13/18 Gestational age: 38 Weeks and 4 Days doctor who attended delivery (if requested by OB): Florecita Wiley Date of Procedure: 12/03/18 Pre-Operative Diagnosis: 38 4/7wga, labor Post-Operative Diagnosis: 38 4/7wga, labor Surgery/ Procedure Performed: Spontaneous Vaginal Delivery Anesthesiologist: Jose Bustillos Type of Anesthesia: Epidural Description of Procedure: Patient was FD/+3 station. FHR Category I. She pushed to deliver a vigorous female . The infant was placed on the maternal abdomen and further attended by nursery personnel. The cord was doubly clamped and cut. The placenta delivered spontaneously and appeared intact on inspection. First degree perineal laceration was repaired with 3-0 Vicryl Rapide. Sponge and needle counts correct x 2. Presentation: Vertex Placental Delivery Description: Spontaneous Placenta Disposition: [facility] Cord Vessel Description: 3 Vessels Nuchal Cord Compression: Without compression Cord Entanglement: - - Around neck x 1, tight Drain: Gannon to straight drain Estimated Blood Loss: 200 ml Infant A gender: Female (1 minute): 8 (5 minute): 9 Episiotomy Description: None Laceration: Midline, Perineal Extension/lac, 2nd degree Medications given after delivery: IV Pitocin Complications: None
--- NOTE | 2018-12-03 14:47 | OP.PCM_ITS ---
- Problem List (1) 38 weeks gestation of Status: Acute Vaginal Delivery Maternal Presentation: Spontaneous Rupture of Membranes Method of Induction: Pitocin Amniotic Membrane Rupture Type: Spontaneous at home Rupture of Membrane time: 1630h 12/02/18 Amniotic Fluid Description: Lightly stained meconium Final MARLENA: 12/13/18 Gestational age: 38 Weeks and 4 Days doctor who attended delivery (if requested by OB): Florecita Coello Date of Procedure: 12/03/18 Pre-Operative Diagnosis: 38 4/7wga, labor Post-Operative Diagnosis: 38 4/7wga, labor Surgery/ Procedure Performed: Spontaneous Vaginal Delivery Anesthesiologist: Jose Bustillos Type of Anesthesia: Epidural Description of Procedure: Patient was FD/+3 station. FHR Category I. She pushed to deliver a vigorous female . The was placed on the maternal abdomen and further attended by nursery personnel. The cord was doubly clamped and cut. The placenta delivered spontaneously and appeared intact on inspection. First degree perineal laceration was repaired with 3-0 Vicryl Rapide. Sponge and needle counts correct x 2. Presentation: Vertex Placental Delivery Description: Spontaneous Placenta Disposition: [facility] Cord Vessel Description: 3 Vessels Nuchal Cord Compression: Without compression Cord Entanglement: - - Around neck x 1, tight Drain: Gannon to straight drain Estimated Blood Loss: 200 ml A gender: Female (1 minute): 8 (5 minute): 9 Episiotomy Description: None Laceration: Midline, Perineal Extension/lac, 2nd degree Medications given after delivery: IV Pitocin Complications: None
[2018-12-03] MEDS: Ibuprofen 600 MG Tablet PO ×2 (16:04→23:24)
[2018-12-03 16:06] VITALS: BP 142/74; PULSE 74; RESP 14; TEMP 36.5
[2018-12-03 20:15] VITALS: BP 125/54; PULSE 84; RESP 16; TEMP 36.6; O2SAT 96
[2018-12-03] MEDS: Acetaminophen 325 MG Tablet PO (20:34)
--- NOTE | 2018-12-03 22:37 | DCINST_ITS ---
Discharge Diet: No Restrictions Discharge Activity: Return to Normal Activity, May Drive, May Shower, May Take a Tub Bath May resume sexual activity in: 6 weeks Lifting Restrictions: 20lb Call your doctor if you observe: Fever of 101 or Higher, Inability to urinate, Inability to have a bowel movement, Using more than one pad per hour, Shortness of breath, Chest pain, Calf discomfort, Uncontrolled pain Cleanse incision/area with: Soap & Water Additional Instructions: If you experience any of the following, contact your healthcare provider. * Bleeding that soaks a pad every hour for 2 hours * Fever 100.4 or higher * Unrelieved incision or abdominal pain * Swelling, redness, discharge or bleeding from your incision or episiotomy site * Your incision begins to separate * Problems urinating (including inability to urinate or burning while urinating). * Visual changes * Severe headache * Flu-like symptoms * Pain or redness in one of both of your breasts * Pain, warmth, tenderness or swelling in your legs, especially the calf area * Frequent nausea and vomiting * Symptoms of depression or anxiety If you experience any of the following, call 911 or go to the nearest Emergency Room. * Chest pain * Problems breathing * Seizure activity * Partial or complete paralysis of a body part, slurred speech, weakness or drooping of the face, or a sudden inability to walk or hold your balance Allergies/Adverse Reactions: Allergies No Known Allergies Allergy (Verified 12/02/18 20:01) Medications to take at Discharge DiphenhydrAMINE [Benadryl] 25 mg PO TID PRN PRN 12/02/18 Montelukast [Singulair] 10 mg PO DAILY 12/02/18 Vits [Prenatabs FA ] 1 tablet PO DAILY 12/02/18 Ibuprofen [Motrin] 600 mg PO Q8H PRN PRN #30 tablet 12/03/18 Senna/Docusate Sodium [Senokot-S] 1 - 2 tablet PO DAILY PRN PRN #60 tablet 12/03/18 The following prescriptions were given: Ibuprofen [Motrin] 600 mg PO Q8H PRN PRN #30 tablet PRN Reason: Pain Senna/Docusate Sodium [Senokot-S] 1 - 2 tablet PO DAILY PRN PRN #60 tablet PRN Reason: Constipation Please Follow Up With: Destini Shoemaker MD When: 6 weeks Primary Care Physician: Care Physician,No Primary [Primary Care Provider] - Test Results: Test results from this visit will be discussed in further detail at your follow- up appointment, if applicable.
--- NOTE | 2018-12-03 22:55 | PCM.DCVAG ---
Discharge Diet: No Restrictions Discharge Activity: Return to Normal Activity, May Drive, May Shower, May Take a Tub Bath May resume sexual activity in: 6 weeks Call your doctor if you observe: Fever of 101 or Higher, Inability to urinate, Inability to have a bowel movement, Using more than one pad per hour, Shortness of breath, Chest pain, Calf discomfort, Uncontrolled pain Cleanse incision/area with: Soap & Water Additional Instructions: If you experience any of the following, contact your healthcare provider. Bleeding that soaks a pad every hour for 2 hours Fever 100.4 or higher Unrelieved incision or abdominal pain Swelling, redness, discharge or bleeding from your incision or episiotomy site Your incision begins to separate Problems urinating (including inability to urinate or burning while urinating). Visual changes Severe headache Flu-like symptoms Pain or redness in one of both of your breasts Pain, warmth, tenderness or swelling in your legs, especially the calf area Frequent nausea and vomiting Symptoms of depression or anxiety If you experience any of the following, call 911 or go to the nearest Emergency Room. Chest pain Problems breathing Seizure activity Partial or complete paralysis of a body part, slurred speech, weakness or drooping of the face, or a sudden inability to walk or hold your balance Allergies/Adverse Reactions: Allergies No Known Allergies Allergy (Verified 12/02/18 20:01) Medications to take at Discharge DiphenhydrAMINE [Benadryl] 25 mg PO TID PRN PRN 12/02/18 Montelukast [Singulair] 10 mg PO DAILY 12/02/18 Vits [Prenatabs FA ] 1 tablet PO DAILY 12/02/18 Ibuprofen [Motrin] 600 mg PO Q8H PRN PRN #30 tablet 12/03/18 Senna/Docusate Sodium [Senokot-S] 1 - 2 tablet PO DAILY PRN PRN #60 tablet 12/03/18 The following prescriptions were given: Ibuprofen [Motrin] 600 mg PO Q8H PRN PRN #30 tablet PRN Reason: Pain Senna/Docusate Sodium [Senokot-S] 1 - 2 tablet PO DAILY PRN PRN #60 tablet PRN Reason: Constipation Please Follow Up With: Destini Shoemaker MD When: 6 weeks Primary Care Physician: Care Physician,No Primary [Primary Care Provider] - Test Results: Test results from this visit will be discussed in further detail at your follow-up appointment, if applicable.
[2018-12-03 23:30] VITALS: BP 126/71; PULSE 81; RESP 16; TEMP 36.8; O2SAT 95
[2018-12-04 03:45] VITALS: BP 112/65; PULSE 80; RESP 16; TEMP 36.5; O2SAT 95
[2018-12-04] MEDS: Ibuprofen 600 MG Tablet PO ×2 (08:27→17:29)
[2018-12-04 08:34] VITALS: BP 124/67; PULSE 80; RESP 18; TEMP 36.5; O2SAT 98
--- NOTE | 2018-12-04 09:07 | PCM.PN.OB ---
Patient Problems: Active and Suspected Problems (spontaneous vaginal delivery) (Acute) 38 weeks gestation of (Acute) Subjective: Patient without complaints. Breast-feeding going well. Wants to go home later today if baby is able to go. - Physical Exam Vital Signs Temp Pulse Resp BP Pulse Ox 97.7 F L 80 18 124/67 H 98 12/04/18 08:34 12/04/18 08:34 12/04/18 08:34 12/04/18 08:34 12/04/18 08:34 Oxygen Delivery Method Room Air Weight: 186 lb 1.122 oz Body Mass Index (BMI) 31.9 Intake and Output for Last 24 Hours 12/02/18 12/03/18 12/04/18 23:59 23:59 23:59 Intake Total 3476 / 3476 Output Total 550 / 550 4100 / 4100 Balance -550 / -550 -624 / -624 Medical Necessity - Tobacco Use Smoking Status: Never smoker Assessment/Plan All Active Problems (spontaneous vaginal delivery) (Acute) 38 weeks gestation of (Acute) Doing well day #1 status post routine spontaneous vaginal delivery. Home-going instructions given in anticipation of possible release later today.
[2018-12-04 14:37] VITALS: BP 120/77; PULSE 74; RESP 18; TEMP 37; O2SAT 98
[2018-12-04] MEDS: Acetaminophen 325 MG Tablet PO (21:11)
[2018-12-04] MEDS: Montelukast 10 MG Tablet PO (21:11)
[2018-12-04 21:28] VITALS: BP 145/84; PULSE 75; RESP 18; TEMP 37; O2SAT 99
[2018-12-05 01:05] VITALS: BP 136/72; PULSE 65; RESP 16; TEMP 36.6; O2SAT 99
[2018-12-05 07:50] VITALS: BP 132/85; PULSE 65; RESP 16; TEMP 36.6; O2SAT 98
--- NOTE | 2018-12-05 09:44 | PCM.PN.OB ---
Patient Problems: Active and Suspected Problems (spontaneous vaginal delivery) (Acute) 38 weeks gestation of (Acute) Subjective: Has cracked nipples. No other complaints. Denies heavy lochia or pain. Objective: avss - Physical Exam General: Alert, Oriented x3, Cooperative, No apparent distress HEENT: Atraumatic, Normocephalic Lungs: Clear to auscultation, Normal air movement Cardiovascular: Regular rate, Regular Rhythm, Normal S1, Normal S2 Abdomen: Soft, Non Tender, Non-Distended, - - fundus firm and nontender Extremities: No edema, No Calf Tenderness Neurological: Neuro grossly intact Psych/Mental Status: Normal Affect, Appropriate, Alert and oriented to time, place, person, mood and affect Vital Signs Temp Pulse Resp BP Pulse Ox 97.9 F 65 16 132/85 H 98 12/05/18 07:50 12/05/18 07:50 12/05/18 07:50 12/05/18 07:50 12/05/18 07:50 Oxygen Delivery Method Room Air Weight: 84.4 kg Body Mass Index (BMI) 31.9 Intake and Output for Last 24 Hours 12/03/18 12/04/18 12/05/18 23:59 23:59 23:59 Intake Total 3476 / 3476 Output Total 4100 / 4100 Balance -624 / -624 Medical Necessity - Tobacco Use Smoking Status: Never smoker Assessment/Plan All Active Problems (spontaneous vaginal delivery) (Acute) 38 weeks gestation of (Acute) 32yo PPD#2 s/p doing well. -d/c home today -Triple Nipple cream called in through office
== END 2018-12-05 10:15 | disposition home or self-care (01) | DRG 560 ==
LOC: WPOUT 20:52 → WP 20:52
PROVIDERS: Obstetrics & Gynecology; Admitting Provider Obstetrics & Gynecology; Referring Provider Obstetrics & Gynecology; Visit Provider Obstetrics & Gynecology
DX: O42.02 Full-term premature rupture of membranes, onset of labor within 24 hours of rupture (principal); O70.0 First degree perineal laceration during delivery; O77.0 Labor and delivery complicated by meconium in amniotic fluid; O10.913 Unspecified pre-existing hypertension complicating pregnancy, third trimester; O99.013 Anemia complicating pregnancy, third trimester; O69.81X0 Labor and delivery complicated by cord around neck, without compression, not applicable or unspecified; Z3A.38 38 weeks gestation of pregnancy; Z37.0 Single live birth
CPT/HCPCS: 59050; 82565; 82570; 84112; 84156; 84450; 84460; 84550; 85027; 85610; 85730; 86850; 86900; 99218; J7120; G0378; J2405

== ENCOUNTER → 2019-01-14 13:46 | Outpatient (CLI) | payer MEDICAID, SELFPAY ==
[2019-01-14 17:19] LABS: Chlamydia Trachomatis by PCR Negative (Negative); Neisserai gonorrhoeae by PCR Negative (Negative); Probe Check PASS; Sample Adequacy Control PASS; Specimen Processing Control PASS
== END ==
PROVIDERS: Visit Provider Obstetrics & Gynecology
DX: Z11.3 Encounter for screening for infections with a predominantly sexual mode of transmission (principal)
CPT/HCPCS: 87491; 87591

== ENCOUNTER → 2020-11-15 16:13 | Outpatient (CLI) | payer SELFPAY ==
[2020-11-19 13:51] LABS: HPV APTIMA, High Risk Negative (Negative)
[2020-11-19 14:22] LABS: HPV Reflexed? YES, CHARGE PATIENT
== END ==
PROVIDERS: Visit Provider Student in an Organized Health Care Education/Training Program
DX: Z12.4 Encounter for screening for malignant neoplasm of cervix (principal)
CPT/HCPCS: 87624; 88175; G0145

== ENCOUNTER → 2022-03-16 | Outpatient (CLI) | payer OTHER, SELFPAY ==
[2022-03-16 14:53] LABS: Absolute Lymphocyte Count 1.88 X10^3/uL (0.83-4.51); Absolute Neutrophil Count 6.4 X10^3/uL (2.0-7.7); Basophil# 0.03 X10^3/uL; Basophil% 0.3 % (0-1); Eosinophil# 0.04 X10^3/uL; Eosinophils% 0.4 % (0-5); Hematocrit 37.5 % (37-47); Hemoglobin 12.4 g/dL (12.0-15.0); Lymphocyte # 1.88 X10^3/ul (0.83-4.51); Lymphocyte % 21.1 % (19-41); Mean Corp Hgb Conc 33.1 g/dL (32-36); Mean Corpuscular Hgb 32.3 pg (27.0-32.0); Mean Corpuscular Volume 97.7 fL (81-99); Monocyte# 0.55 X10^3/uL; Monocyte% 6.2 % (0-10); NRBC Flagged by Analyzer 0 % (0-5); Neutrophil # 6.39 X10^3/uL (2.7-7.7); Neutrophil % 71.6 % (47-70); Platelet Count 370 K/mm3 (150-450); RBC Distribution Width SD 43.5 fl (35.1-43.9); Red Blood Count 3.84 M/mm3 (4.2-5.4); White Blood Count 8.9 K/mm3 (4.4-11.0)
[2022-03-16 15:11] LABS: ALB/GLOB Ratio 0.9 RATIO (0.9-2.4); AST(SGOT) 16 U/L (15-37); Alanine Aminotransfer ALT/SGPT 23 U/L (13-56); Albumin, Serum 3.6 g/dL (3.2-5.0); Alkaline Phosphatase 48 U/L (45-117); Anion Gap 9 (5-15); BUN 9 mg/dL (7-18); BUN/Creat Ratio 19.2 RATIO (10-20); Calcium,Total 8.8 mg/dL (8.5-10.1); Chloride 104 mmol/L (98-107); Creatinine, Serum 0.47 mg/dL (0.55-1.02); EST Glomerular Filtration Rate 158 mL/min (>60); Est Glom Filt Rate - Afr Amer 191 mL/min (>60); Globulin 4.1 g/dL (2.2-4.2); Glucose 109 mg/dL (74-106); Potassium 3.4 mmol/L (3.5-5.1); Protein, Total 7.7 g/dL (6.4-8.2); Sodium Level 137 mmol/L (136-145)
[2022-03-16 16:10] LABS: HIV - WCH Non-Reactive (Nonreactive); Hepatitis B Surface Antigen Non-Reactive (Nonreactive); Hepatitis C Antibody Non-Reactive (Nonreactive); Protein, Urine (Random) < 6.0 mg/dL (<11.9); Rubella IgG Reactive (Nonreactive); Syphilis Antibodies Non-reactive
[2022-03-21 05:06] LABS: Chlamydia By Nucleic Acid AMP Negative (Negative)
[2022-03-21 11:29] LABS: Gonococcus By Nucleic Acid AMP Negative (Negative)
== END | disposition home or self-care (01) ==
PROVIDERS: Visit Provider Student in an Organized Health Care Education/Training Program
DX: Z34.81 Encounter for supervision of other normal pregnancy, first trimester (principal); Z11.3 Encounter for screening for infections with a predominantly sexual mode of transmission
CPT/HCPCS: 36415; 80053; 82570; 84156; 85025; 86703; 86762; 86780; 86803; 87086; 87340; 87491; 87591

== ENCOUNTER → 2022-04-18 | Outpatient (CLI) | payer OTHER, SELFPAY | END | disposition home or self-care (01) | LOC: LABSPEC 13:50 | PROVIDERS: Visit Provider Obstetrics & Gynecology | DX: Z34.81 Encounter for supervision of other normal pregnancy, first trimester (principal) | CPT/HCPCS: 36415 ==

== ENCOUNTER → 2022-04-25 | Outpatient (CLI) | payer OTHER, SELFPAY | END | disposition home or self-care (01) | PROVIDERS: Visit Provider Obstetrics & Gynecology | DX: R30.0 Dysuria (principal) | CPT/HCPCS: 87086; 87088 ==

== ENCOUNTER → 2022-08-02 | Outpatient (CLI) | payer BC, SELFPAY ==
[2022-08-02 11:33] LABS: Basophil# 0.02 X10^3/uL; Basophil% 0.2 % (0-1); Eosinophil# 0.03 X10^3/uL; Eosinophils% 0.3 % (0-5); Hematocrit 33.5 % (37-47); Hemoglobin 11.2 g/dL (12.0-15.0); Lymphocyte % 14.7 % (19-41); Mean Corp Hgb Conc 33.4 g/dL (32-36); Mean Corpuscular Hgb 32.3 pg (27.0-32.0); Mean Corpuscular Volume 96.5 fL (81-99); Mean Platelet Vol. 9.8 fl (6.2-12.0); Monocyte# 0.56 X10^3/uL; Monocyte% 5.5 % (0-10); NRBC Flagged by Analyzer 0 % (0-5); Neutrophil # 7.99 X10^3/uL (2.7-7.7); Neutrophil % 78.5 % (47-70); Platelet Count 289 K/mm3 (150-450); RBC Distribution Width CV 13.2 % (11.6-14.6); RBC Distribution Width SD 46.5 fl (35.1-43.9); Red Blood Count 3.47 M/mm3 (4.2-5.4); White Blood Count 10.2 K/mm3 (4.4-11.0)
[2022-08-02 11:53] LABS: Glucose Challenge Gest 1H 50g 149 mg/dL (70-140)
== END | disposition home or self-care (01) ==
LOC: WOBLAB 11:12
PROVIDERS: Visit Provider Student in an Organized Health Care Education/Training Program
DX: Z34.82 Encounter for supervision of other normal pregnancy, second trimester (principal)
CPT/HCPCS: 36415; 82950; 85025

== ENCOUNTER → 2022-08-04 | Outpatient (CLI) | payer BC, SELFPAY ==
[2022-08-04 09:44] LABS: Glucose GTT-Gestation. Fasting 101 mg/dL (<105)
[2022-08-04 11:06] LABS: Glucose GTT-Gestational 1 Hr 203 mg/dL (<190)
[2022-08-04 11:40] LABS: Glucose GTT-Gestational 2 Hr 192 mg/dL (<165)
[2022-08-04 12:34] LABS: Glucose GTT-Gestational 3 Hr 173 L (<145)
== END | disposition home or self-care (01) ==
LOC: WOBLAB 08:37
PROVIDERS: Visit Provider Student in an Organized Health Care Education/Training Program
DX: R73.02 Impaired glucose tolerance (oral) (principal)
CPT/HCPCS: 36415; 82951; 82952

== ENCOUNTER → 2022-08-31 | Outpatient (CLI) | payer BC, SELFPAY ==
[2022-08-31 12:10] LABS: Protein, Urine (Random) < 6.0 mg/dL (<11.9); Protein:Creat Ratio 266 mg/g CRE (0-200)
[2022-08-31 13:19] LABS: Absolute Lymphocyte Count 1.42 X10^3/uL (0.83-4.51); Absolute Neutrophil Count 6.6 X10^3/uL (2.0-7.7); Basophil# 0.02 X10^3/uL; Basophil% 0.2 % (0-1); Eosinophil# 0.02 X10^3/uL; Eosinophils% 0.2 % (0-5); Hematocrit 33.5 % (37-47); Hemoglobin 11.6 g/dL (12.0-15.0); Lymphocyte # 1.42 X10^3/ul (0.83-4.51); Lymphocyte % 16.3 % (19-41); Mean Corp Hgb Conc 34.6 g/dL (32-36); Mean Corpuscular Hgb 32.7 pg (27.0-32.0); Mean Corpuscular Volume 94.4 fL (81-99); Mean Platelet Vol. 10.1 fl (6.2-12.0); Monocyte# 0.65 X10^3/uL; Monocyte% 7.5 % (0-10); NRBC Flagged by Analyzer 0 % (0-5); Neutrophil # 6.55 X10^3/uL (2.7-7.7); Neutrophil % 75.3 % (47-70); Platelet Count 324 K/mm3 (150-450); RBC Distribution Width CV 13.4 % (11.6-14.6); RBC Distribution Width SD 46.4 fl (35.1-43.9); Red Blood Count 3.55 M/mm3 (4.2-5.4); White Blood Count 8.7 K/mm3 (4.4-11.0)
[2022-08-31 13:43] LABS: ALB/GLOB Ratio 0.7 RATIO (0.9-2.4); AST(SGOT) 11 U/L (15-37); Alanine Aminotransfer ALT/SGPT 12 U/L (13-56); Albumin, Serum 3.1 g/dL (3.2-5.0); Alkaline Phosphatase 195 U/L (45-117); Anion Gap 10 (5-15); BUN 10 mg/dL (7-18); BUN/Creat Ratio 27.6 RATIO (10-20); Calcium,Total 8.9 mg/dL (8.5-10.1); Chloride 106 mmol/L (98-107); Creatinine, Serum 0.36 mg/dL (0.55-1.02); EST Glomerular Filtration Rate 212 mL/min (>60); Est Glom Filt Rate - Afr Amer 257 mL/min (>60); Globulin 4.2 g/dL (2.2-4.2); Glucose 90 mg/dL (74-106); LDH 125 U/L (84-246); Potassium 3.6 mmol/L (3.5-5.1); Protein, Total 7.3 g/dL (6.4-8.2); Sodium Level 139 mmol/L (136-145)
== END | disposition home or self-care (01) ==
LOC: LABSPEC 11:47
PROVIDERS: Visit Provider Obstetrics & Gynecology
DX: O13.3 Gestational [pregnancy-induced] hypertension without significant proteinuria, third trimester (principal); Z3A.00 Weeks of gestation of pregnancy not specified
CPT/HCPCS: 36415; 80053; 82570; 83615; 84156; 85025; 87086; 87088

== ENCOUNTER → 2022-10-02 | Outpatient (CLI) | payer BC, SELFPAY ==
[2022-10-02 13:08] LABS: Absolute Lymphocyte Count 1.61 X10^3/uL (0.83-4.51); Absolute Neutrophil Count 6.5 X10^3/uL (2.0-7.7); Basophil# 0.01 X10^3/uL; Basophil% 0.1 % (0-1); Eosinophil# 0.03 X10^3/uL; Eosinophils% 0.3 % (0-5); Hematocrit 35.6 % (37-47); Hemoglobin 11.4 g/dL (12.0-15.0); Lymphocyte # 1.61 X10^3/ul (0.83-4.51); Lymphocyte % 18.2 % (19-41); Mean Corpuscular Hgb 30.2 pg (27.0-32.0); Mean Corpuscular Volume 94.4 fL (81-99); Mean Platelet Vol. 10.7 fl (6.2-12.0); Monocyte# 0.66 X10^3/uL; Monocyte% 7.5 % (0-10); NRBC Flagged by Analyzer 0 % (0-5); Neutrophil # 6.47 X10^3/uL (2.7-7.7); Neutrophil % 73.3 % (47-70); Platelet Count 294 K/mm3 (150-450); RBC Distribution Width CV 13.6 % (11.6-14.6); RBC Distribution Width SD 46.9 fl (35.1-43.9); Red Blood Count 3.77 M/mm3 (4.2-5.4); White Blood Count 8.8 K/mm3 (4.4-11.0)
[2022-10-02 13:17] LABS: Protein, Urine (Random) 8.2 mg/dL (<11.9); Protein:Creat Ratio 132 mg/g CRE (0-200)
[2022-10-02 13:41] LABS: ALB/GLOB Ratio 0.7 RATIO (0.9-2.4); AST(SGOT) 11 U/L (15-37); Alanine Aminotransfer ALT/SGPT 13 U/L (13-56); Albumin, Serum 2.9 g/dL (3.2-5.0); Alkaline Phosphatase 305 U/L (45-117); Anion Gap 9 (5-15); BUN 10 mg/dL (7-18); BUN/Creat Ratio 20.8 RATIO (10-20); Calcium,Total 9.2 mg/dL (8.5-10.1); Chloride 110 mmol/L (98-107); Creatinine, Serum 0.48 mg/dL (0.55-1.02); EST Glomerular Filtration Rate 153 mL/min (>60); Est Glom Filt Rate - Afr Amer 185 mL/min (>60); Globulin 4.4 g/dL (2.2-4.2); Glucose 87 mg/dL (74-106); LDH 151 U/L (84-246); Potassium 4.2 mmol/L (3.5-5.1); Protein, Total 7.3 g/dL (6.4-8.2); Sodium Level 139 mmol/L (136-145)
== END | disposition home or self-care (01) ==
LOC: WOBLAB 11:58
PROVIDERS: Visit Provider Student in an Organized Health Care Education/Training Program
DX: Z36.85 Encounter for antenatal screening for Streptococcus B (principal); O13.3 Gestational [pregnancy-induced] hypertension without significant proteinuria, third trimester
CPT/HCPCS: 36415; 80053; 82570; 83615; 84156; 85025; 87081; 87086; 87088

== ENCOUNTER 2022-10-16 07:00 | Inpatient (IN) | payer BC, SELFPAY ==
[2022-10-16] VITALS (69 sets, daily range): BP systolic 124–190; BP diastolic 59–105; PULSE 57–111; TEMP 36.6–37.3; O2SAT 94–100; BMI 33.5
[2022-10-16] MEDS: Lactated Ringers 1,000 ML 50 ML IV (08:10)
[2022-10-16 08:38] LABS: Absolute Lymphocyte Count 1.47 X10^3/uL (0.83-4.51); Absolute Neutrophil Count 6.2 X10^3/uL (2.0-7.7); Basophil# 0.02 X10^3/uL; Basophil% 0.2 % (0-1); Eosinophil# 0.04 X10^3/uL; Eosinophils% 0.5 % (0-5); Hematocrit 34.4 % (37-47); Hemoglobin 11.6 g/dL (12.0-15.0); Lymphocyte # 1.47 X10^3/ul (0.83-4.51); Lymphocyte % 17.6 % (19-41); Mean Corp Hgb Conc 33.7 g/dL (32-36); Mean Corpuscular Hgb 31.4 pg (27.0-32.0); Mean Platelet Vol. 10.4 fl (6.2-12.0); Monocyte# 0.64 X10^3/uL; Monocyte% 7.6 % (0-10); NRBC Flagged by Analyzer 0 % (0-5); Neutrophil # 6.17 X10^3/uL (2.7-7.7); Neutrophil % 73.7 % (47-70); Platelet Count 260 K/mm3 (150-450); RBC Distribution Width CV 13.9 % (11.6-14.6); RBC Distribution Width SD 47.2 fl (35.1-43.9); White Blood Count 8.4 K/mm3 (4.4-11.0)
[2022-10-16 08:41] LABS: Bedside Glucose 88 mg/dL (74-106)
[2022-10-16] MEDS: miSOPROStol 25 MCG TABLET VAGINAL ×2 (08:45→13:01)
[2022-10-16 10:20] LABS: Bedside Glucose 74 mg/dL (74-106)
--- NOTE | 2022-10-16 10:28 | HP.PCM.OB_ITS ---
History and Physical Date of Admission: 10/16/22 HPI: 36-year-old G5, P2 at 38/0 weeks, MARLENA 10/30/2022 by LMP, admitted for induction of labor for chronic hypertension on no medications and gestational diabetes type A2. Denies regular contractions, vaginal bleeding, leaking of fluid. Reports movement. Denies headache or vision changes, chest pain or shortness of breath, nausea or vomiting, diarrhea or constipation, fevers or chills. complicated by: Advanced maternal age, chronic hypertension controlled on no medication, GDM A2 on Levemir 25 units nightly at home. PUMP [employer]OR history G1: First trimester miscarriage G2: 39-week G3: 38-week G4: First trimester miscarriage G5: Current Medical history: 1. Chronic hypertension 2. GDM A2 Surgical history: 1. Dilation curettage in 2003 Medications 1. Benadryl 2. Montelukast 3. vitamin 4. Levemir 25 units nightly Family history: Noncontributory. No history of blood clots or bleeding disorders Social history: Denies tobacco, alcohol, drug use Allergies: No known drug allergies Review of system: Negative otherwise stated above Physical exam: Blood pressure 156/72, heart rate 77, pulse ox 98% oxygen saturation on room air, temp 97.9 ?F General: No acute distress HEENT: Normal cephalic/atraumatic, PERRLA Cardiorespiratory: No increased effort Abdomen: Soft, nontender, gravid Extremities: Minimal edema Neurologic: Cranial nerves II through XII grossly intact, no focal deficits Musculoskeletal: Strength out of 5 throughout all extremities Cervical exam: Per RN FHR: 135/mod joselin/+accel/no decel [place]: irregular labs: GBS negative on 10/02 Rubella immune Gonorrhea/chlamydia negative HIV/hepatitis B/hepatitis C all negative Syphilis negative A positive 36-year-old G5, P2 at 38/0 weeks, MARLENA 10/30/2022 by LMP, admitted for induction of labor for chronic hypertension on no medications and gestational diabetes type A2. complicated by: Advanced maternal age, chronic hypertension controlled on no medication, GDM A2. ?Admit for induction of labor with Cytotec ?GBS negative ?If blood pressures persistently elevated will add CMP, LDH, urine pro tein/creatinine ratio ?GDM A2: Routine labor orders for blood sugars
[2022-10-16 11:55] LABS: Bedside Glucose 86 mg/dL (74-106)
[2022-10-16 12:40] LABS: Bedside Glucose 87 mg/dL (74-106)
[2022-10-16 14:01] LABS: Bedside Glucose 80 mg/dL (74-106)
[2022-10-16 15:36] LABS: Bedside Glucose 78 mg/dL (74-106)
[2022-10-16] MEDS: Oxytocin 15 Units/NS 250ml 15 UNITS/250 ML IV.SOLN 2 UNITS IV (17:15)
[2022-10-16] MEDS: LACTATED RINGERS 500 ML 999 ML IV (18:40)
[2022-10-16 19:05] LABS: Bedside Glucose 105 mg/dL (74-106)
[2022-10-16] MEDS: fentaNYL-bupivacaine (epidural) 100 ML BAG EPIDURAL ×2 (19:50→23:51)
[2022-10-16 22:15] LABS: Bedside Glucose 88 mg/dL (74-106)
[2022-10-16 22:39] LABS: Protein, Urine (Random) 15.7 mg/dL (<11.9); Protein:Creat Ratio 226 mg/g CRE (0-200)
[2022-10-16 22:41] LABS: ALB/GLOB Ratio 0.7 RATIO (0.9-2.4); AST(SGOT) 10 U/L (15-37); Alanine Aminotransfer ALT/SGPT 11 U/L (13-56); Albumin, Serum 2.6 g/dL (3.2-5.0); Alkaline Phosphatase 361 U/L (45-117); Anion Gap 8 (5-15); BUN 10 mg/dL (7-18); BUN/Creat Ratio 19.1 RATIO (10-20); Calcium,Total 8.7 mg/dL (8.5-10.1); Chloride 108 mmol/L (98-107); Creatinine, Serum 0.52 mg/dL (0.55-1.02); EST Glomerular Filtration Rate 139 mL/min (>60); Est Glom Filt Rate - Afr Amer 168 mL/min (>60); Estimated Creatinine Clearance 126.67 ml/min; Globulin 3.9 g/dL (2.2-4.2); Glucose 97 mg/dL (74-106); LDH 119 U/L (84-246); Potassium 3.6 mmol/L (3.5-5.1); Protein, Total 6.5 g/dL (6.4-8.2); Sodium Level 138 mmol/L (136-145)
[2022-10-17] VITALS (30 sets, daily range): BP systolic 120–160; BP diastolic 60–86; PULSE 74–100; RESP 16–18; TEMP 36.2–37.3; O2SAT 91–99
[2022-10-17 01:05] LABS: Bedside Glucose 104 mg/dL (74-106)
[2022-10-17] MEDS: Lactated Ringers 1,000 ML 200 ML IV (02:19)
[2022-10-17 03:40] LABS: Bedside Glucose 108 mg/dL (74-106)
--- NOTE | 2022-10-17 04:54 | PN.OBGYN_ITS ---
Subjective Subjective Patient comfortable, tearful. Objective Data Objective Data Vital Signs: Vital Signs Temp Pulse BP Pulse Ox 99.1 F 94 159/76 H 98 10/17/22 04:48 10/17/22 04:51 10/17/22 04:48 10/17/22 04:51 Weight: 88.6 kg Body Mass Index (BMI) 33.5 Intake & Output: Intake and Output for Last 24 Hours 10/15/22 10/16/22 10/17/22 23:59 23:59 23:59 Intake Total 1312.04 / 1312.04 1325.86 / 1325.86 Output Total 1450 / 1450 900 / 900 Balance -137.96 / -137.96 425.86 / 425.86 Lab / Micro Data Attestation: I reviewed the patient's lab results. Result Diagrams: 10/16/22 08:10 10/16/22 21:48 Labs: Laboratory Results - last 24 hr 10/16/22 08:09: POC Glucose 88 10/16/22 08:10: WBC 8.4, RBC 3.70 L, Hgb 11.6 L, Hct 34.4 L, MCV 93.0, MCH 31.4, MCHC 33.7, RDW Std Deviation 47.2 H, RDW Coeff of Eryn 13.9, Plt Count 260, MPV 10.4, Immature Gran % (Auto) 0.400, Neut % (Auto) 73.7 H, Lymph % (Auto) 17.6 L, [place] % (Auto) 7.6, Eos % (Auto) 0.5, Baso % (Auto) 0.2, Absolute Neuts (auto) 6.2, Absolute Lymphs (auto) 1.47, Nucleated RBC % 0 10/16/22 08:10: Blood Type A POSITIVE, Antibody Screen NEGATIVE 10/16/22 09:43: POC Glucose 74 10/16/22 11:22: POC Glucose 86 10/16/22 12:21: POC Glucose 87 10/16/22 13:31: POC Glucose 80 10/16/22 15:12: POC Glucose 78 10/16/22 18:38: POC Glucose 105 10/16/22 21:08: POC Glucose 88 10/16/22 21:48: Sodium 138, Potassium 3.6, Chloride 108 H, Carbon Dioxide 22.0, Anion Gap 8, BUN 10, Creatinine 0.52 L, Estim Creat Clear Calc 126.67, Est GFR (MDRD) Af Amer 168, Est GFR (MDRD) Non-Af 139, BUN/Creatinine Ratio 19.1, Glucose 97, Calcium 8.7, Total Bilirubin 0.40, AST 10 L, ALT 11 L, Alkaline Phosphatase 361 H, Lactate Dehydrogenase 119, Total Protein 6.5, Albumin 2.6 L, Globulin 3.9, Albumin/Globulin Ratio 0.7 L 10/16/22 21:50: U Random Total Protein 15.7 H, Urine Creatinine 69.60, Protein/Creatinin Ratio 226 H 10/17/22 00:44: POC Glucose 104 10/17/22 03:13: POC Glucose 108 H Physical Exam Const alert and oriented x3 HEENT normocephalic Resp normal respiratory effort Cardio regular rate GI non-tender and non-distended Inspection: gravid Narrative: [address] Ricardo Solorio Assessment & Plan (1) 38 weeks gestation of : PLAN: Called for heart rate deceleration. Patient had recurrent late decelerations, followed by heart rate deceleration of 4 minutes prior to patient being taken back to the OR. Total of 7 minutes per report. heart rate had recovered. Heart rate deceleration likely secondary to cervical change as patient went from 6 cm to 9 cm and had spontaneous rupture of membranes. Patient and heart rate was monitored for several minutes prior to taking patient back to her labor room. Discussed heart rate deceleration with patient and also with her . All questions answered. Dr. Ricardo Solorio was present in room upon arrival. (2) Chronic hypertension: (3) Gestational diabetes:
--- NOTE | 2022-10-17 04:59 | OP.PCM_ITS ---
Maternal Data Information Final MARLENA: 10/30/22 Final MARLENA Source: LMP Vaginal Delivery Operative Information Date of Procedure: 10/17/22 Pre-Operative Diagnosis: Hua intrauterine . Gestational diabetes type A2, chronic hypertension. Post-Operative Diagnosis: Hua intrauterine . Gestational diabetes type A2, chronic hypertension. Surgery / Procedure Performed: Spontaneous Vaginal Delivery Type of Anesthesia: Epidural Estimated Blood Loss: 350cc Findings Description of Procedure: Spontaneous vaginal delivery of viable . Nuchal cord x1, loose, reduced. Baby to mom. Cord clamped and cut. Spontaneous delivery of placenta. First- degree laceration reapproximated with 1 [id number] stitch, hemostatic. Through repeat discussion at this time, patient declined previously planned IUD placement. We will plan for placement in the office at visit. Again reviewed delivery and heart rate deceleration with patient and her . All questions answered. (1 minute): 7 (5 minute): 9 Complication Complications: None
[2022-10-17 05:50] LABS: Bedside Glucose 133 mg/dL (74-106)
[2022-10-17] MEDS: Acetaminophen 500 MG Tablet 1000 MG PO ×2 (06:44→17:44)
[2022-10-17] MEDS: Ibuprofen 600 MG Tablet PO ×2 (09:50→22:06)
[2022-10-17] MEDS: Montelukast 10 MG Tablet PO (22:06)
[2022-10-18 03:29] VITALS: BP 133/71; PULSE 80; RESP 16; TEMP 36.8; O2SAT 97
[2022-10-18] MEDS: Acetaminophen 500 MG Tablet 1000 MG PO ×2 (03:34→13:49)
[2022-10-18 05:12] LABS: Hematocrit 32.4 % (37-47); Hemoglobin 10.4 g/dL (12.0-15.0); Mean Corp Hgb Conc 32.1 g/dL (32-36); Mean Corpuscular Hgb 30.5 pg (27.0-32.0); Mean Platelet Vol. 10.2 fl (6.2-12.0); Platelet Count 254 K/mm3 (150-450); RBC Distribution Width CV 14.1 % (11.6-14.6); RBC Distribution Width SD 49.1 fl (35.1-43.9); Red Blood Count 3.41 M/mm3 (4.2-5.4); White Blood Count 12.3 K/mm3 (4.4-11.0)
[2022-10-18 05:26] LABS: Bedside Glucose 79 mg/dL (74-106)
--- NOTE | 2022-10-18 06:02 | PN.OBGYN_ITS ---
Subjective Subjective Feeling well. Lochia minimal. Working on pumping. Objective Data Objective Data Vital Signs: Vital Signs Temp Pulse Resp BP Pulse Ox O2 Del Method 98.2 F 80 16 133/71 H 97 Room Air 10/18/22 03:29 10/18/22 03:29 10/18/22 03:29 10/18/22 03:29 10/18/22 03:29 10/18/22 03:29 Oxygen Delivery Method Room Air Weight: 88.6 kg Body Mass Index (BMI) 33.5 Intake & Output: Intake and Output for Last 24 Hours 10/16/22 10/17/22 10/18/22 23:59 23:59 23:59 Intake Total 1312.04 / 1312.04 1782.82 / 1782.82 Output Total 1450 / 1450 900 / 900 Balance -137.96 / -137.96 882.82 / 882.82 Lab / Micro Data Attestation: I reviewed the patient's lab results. Result Diagrams: 10/18/22 05:05 10/16/22 21:48 Labs: Laboratory Results - last 24 hr 10/18/22 05:00: POC Glucose 79 10/18/22 05:05: WBC 12.3 H, RBC 3.41 L, Hgb 10.4 L, Hct 32.4 L, MCV 95.0, MCH 30.5, MCHC 32.1, RDW Std Deviation 49.1 H, RDW Coeff of Eryn 14.1, Plt Count 254, MPV 10.2 Physical Exam Const alert, oriented x3 and no apparent distress HEENT normocephalic Head and Scalp: atraumatic Neck full ROM Resp normal respiratory effort Cardio regular rate GI normal to inspection, nondistended, normoactive bowel sounds GI Narrative: Uterus 2 cm below umbilicus Back/Spine normal ROM Extremity normal to inspection Extremity Narrative: Minimal pedal edema Neuro no focal motor deficits and no sensory deficits noted Psych mental status grossly normal and affect normal Assessment & Plan (1) Gestational diabetes: PLAN: day 1 status post . Complicated by GDM A2: Glucose this morning within normal limits. Chronic hypertension on no meds. Blood pressures been well controlled, will continue to monitor. Baby is in special care for glu cose monitoring and glucose drip. Patient is pumping. Likely home tomorrow. (2) Chronic hypertension: (3) (spontaneous vaginal delivery):
--- NOTE | 2022-10-18 06:04 | DCINST_ITS ---
Discharge Instructions Diet Discharge Diet: No restrictions Activity Discharge Activity: Return to Normal Activity and May Shower May resume sexual activity in: 4-6 weeks Weight Bearing Status: Weight bearing as tolerated Lifting Restrictions: No greater than 25 pounds Dressing / Incision Call your doctor if you observe: Fever of 101 or Higher, Change in Color, Inability to urinate, Using more than 1 pad per hour, Shortness of breath, Dizziness, Swelling in the ankles, Chest pain and Calf discomfort Follow Up Care Please Follow Up With: Roni Pena MD When: 1 week nurse BP check and 6-week visit Test Results: Test results from this visit will be discussed in further detail at your follow- up appointment, if applicable. Discharge Plan Admission Admit Date/Time: 10/16/22 07:00 Primary Reason for Your Visit: Induction of labor Attending Provider: Trinh Pena Primary Care Provider: Whitley Coronel Primary Instructions Additional Instructions / Restrictions: Regular diet. Weightbearing as tolerated. Okay to shower. No intercourse for 4 to 6 weeks. Call if fevers, chills, chest pain, shortness of breath, headache, visual changes. Follow-up blood pressure check 1 week, 4 to 6 weeks Discharge Orders/Prescriptions Prescriptions: Continued diphenhydramine HCl [Banophen] 25 MG capsule 25 mg PO TID PRN PRN (Reason: Allergies) montelukast 10 MG tablet 10 mg PO DAILY Prenatabs FA 1 TABLET tablet 1 tab PO DAILY sennosides-docusate sodium [Stool Softener-Stimulant Laxat] 1 TABLET tablet 1 - 2 tab PO DAILY PRN PRN (Reason: Constipation ) Qty: 60 0RF ibuprofen 600 MG tablet 600 mg PO Q8H PRN PRN (Reason: Pain) Qty: 30 0RF Discontinued aspirin 81 mg tablet,delayed release (DR/EC) 81 mg PO DAILY Levemir Flexpen 25 units OTHER QHS Referrals / Follow Up: Care Physician,No Primary [Primary Care Provider] - Disposition Disposition (needs filled in before D/C Order can be placed): Home, Self Care
[2022-10-18 08:15] VITALS: BP 140/77; PULSE 85; RESP 18; TEMP 36.9
[2022-10-18] MEDS: Ibuprofen 600 MG Tablet PO ×2 (11:42→22:04)
[2022-10-18 14:00] VITALS: BP 137/66; PULSE 84; RESP 16; TEMP 36.6
[2022-10-18 19:43] VITALS: BP 149/92; PULSE 80; RESP 16; TEMP 36.8
[2022-10-18] MEDS: Montelukast 10 MG Tablet PO (22:04)
[2022-10-19 02:27] VITALS: BP 132/75; PULSE 81; RESP 16; TEMP 36.6
--- NOTE | 2022-10-19 07:26 | PCM.DC.BLA ---
Discharge Summary Date of Admission: 10/16/22 Date of Discharge: 10/19/22 Summary: Patient arrived on 10/16/2022 for induction of labor with chronic hypertension and gestational diabetes. Subsequently delivered vaginally on 10/17/2022. Routine recovery. Baby to special care for hypoglycemia. [facility] Meaningful Use Info Meaningful Use Diagnoses (Choose all that apply): None applicable Discharge Plan Admission Admit Date/Time: 10/16/22 07:00 Primary Reason for Your Visit: Induction of labor Attending Provider: Trinh Pena Primary Care Provider: Whitley Coronel Primary Instructions Additional Instructions / Restrictions: Regular diet. Weightbearing as tolerated. Okay to shower. No intercourse for 4 to 6 weeks. Call if fevers, chills, chest pain, shortness of breath, headache, visual changes. Follow-up blood pressure check 1 week, 4 to 6 weeks Discharge Orders/Prescriptions Prescriptions: Continued diphenhydramine HCl [Banophen] 25 MG capsule 25 mg PO TID PRN PRN (Reason: Allergies) montelukast 10 MG tablet 10 mg PO DAILY Prenatabs FA 1 TABLET tablet 1 tab PO DAILY sennosides-docusate sodium [Stool Softener-Stimulant Laxat] 1 TABLET tablet 1 - 2 tab PO DAILY PRN PRN (Reason: Constipation ) Qty: 60 0RF ibuprofen 600 MG tablet 600 mg PO Q8H PRN PRN (Reason: Pain) Qty: 30 0RF Discontinued aspirin 81 mg tablet,delayed release (DR/EC) 81 mg PO DAILY Levemir Flexpen 25 units OTHER QHS Referrals / Follow Up: Care Physician,No Primary [Primary Care Provider] - Disposition Disposition (needs filled in before D/C Order can be placed): Home, Self Care
--- NOTE | 2022-10-19 07:27 | PN.OBGYN_ITS ---
Subjective Subjective No overnight complaint Objective Data Objective Data Vital Signs: Vital Signs Temp Pulse Resp BP Pulse Ox O2 Del Method 97.8 F 81 16 132/75 H 97 Room Air 10/19/22 02:27 10/19/22 02:27 10/19/22 02:27 10/19/22 02:27 10/18/22 03:29 10/19/22 02:27 Oxygen Delivery Method Room Air Weight: 195 lb 5.273 oz Body Mass Index (BMI) 33.5 Intake & Output: Intake and Output for Last 24 Hours 10/17/22 10/18/22 10/19/22 23:59 23:59 23:59 Intake Total 1782.82 / 1782.82 Output Total 900 / 900 Balance 882.82 / 882.82 Lab / Micro Data Result Diagrams: 10/18/22 05:05 10/16/22 21:48 Physical Exam Const alert, oriented x3, no apparent distress, average body habitus, healthy appearing and well nourished HEENT normocephalic and moist oral mucous membranes Eyes PERRL Neck full ROM Resp normal respiratory effort, no retractions and no use of accessory muscles Extremity normal to inspection and full ROM Neuro moves all extremities and no focal motor deficits Psych mental status grossly normal, affect normal, speech normal and activity/motor behavior normal Assessment & Plan (1) (spontaneous vaginal delivery): PLAN: day 2. Breast-feeding. Pain well controlled. Chronic hypertension on no medications asymptomatic. Gestational diabetes, will follow- up with evaluation. Baby in special care nursery for hypoglycemia will discharge patient to hotel status
[2022-10-19 07:37] VITALS: BP 149/77; PULSE 81; RESP 16; TEMP 36.9; O2SAT 98
[2022-10-19] MEDS: Acetaminophen 500 MG Tablet 1000 MG PO (08:07)
[2022-10-19] MEDS: Ibuprofen 600 MG Tablet PO (11:36)
[2022-10-19 14:00] VITALS: BP 148/86; PULSE 88; RESP 16; TEMP 37.1; O2SAT 98
== END 2022-10-19 14:00 | disposition home or self-care (01) | DRG 806 ==
PROVIDERS: Admitting Provider Student in an Organized Health Care Education/Training Program; Visit Provider Student in an Organized Health Care Education/Training Program
DX: O76 Abnormality in fetal heart rate and rhythm complicating labor and delivery (principal); Z37.0 Single live birth; O10.02 Pre-existing essential hypertension complicating childbirth; O24.424 Gestational diabetes mellitus in childbirth, insulin controlled; O69.81X0 Labor and delivery complicated by cord around neck, without compression, not applicable or unspecified; Z3A.38 38 weeks gestation of pregnancy; O70.0 First degree perineal laceration during delivery
CPT/HCPCS: 59025; 59050; 80053; 82570; 82962; 83615; 84156; 85025; 85027; 86850; 86900; 86901; 99218; J7120; G0378

== ENCOUNTER → 2022-11-14 | Outpatient (CLI) | payer BC, SELFPAY ==
[2022-11-14 10:57] LABS: Hematocrit 40.8 % (37-47); Mean Corp Hgb Conc 31.9 g/dL (32-36); Mean Corpuscular Volume 94.2 fL (81-99); Mean Platelet Vol. 10.4 fl (6.2-12.0); Platelet Count 300 K/mm3 (150-450); RBC Distribution Width CV 13.3 % (11.6-14.6); RBC Distribution Width SD 46.2 fl (35.1-43.9); Red Blood Count 4.33 M/mm3 (4.2-5.4)
[2022-11-14 11:31] LABS: ALB/GLOB Ratio 0.9 RATIO (0.9-2.4); AST(SGOT) 19 U/L (15-37); Alanine Aminotransfer ALT/SGPT 39 U/L (13-56); Albumin, Serum 3.7 g/dL (3.2-5.0); Alkaline Phosphatase 85 U/L (45-117); Anion Gap 10 (5-15); BUN 10 mg/dL (7-18); BUN/Creat Ratio 15.3 RATIO (10-20); Chloride 103 mmol/L (98-107); Creatinine, Serum 0.66 mg/dL (0.55-1.02); EST Glomerular Filtration Rate 107 mL/min (>60); Est Glom Filt Rate - Afr Amer 129 mL/min (>60); Globulin 4.2 g/dL (2.2-4.2); Glucose 115 mg/dL (74-106); Protein, Total 7.9 g/dL (6.4-8.2); Sodium Level 138 mmol/L (136-145)
== END | disposition home or self-care (01) ==
LOC: WOBLAB 10:25
PROVIDERS: Visit Provider Student in an Organized Health Care Education/Training Program
DX: Z39.2 Encounter for routine postpartum follow-up (principal)
CPT/HCPCS: 36415; 80053; 85027

== ENCOUNTER → 2022-11-29 | Outpatient (CLI) | payer BC, SELFPAY ==
[2022-11-29 12:19] LABS: Glucose 2 Hour Postprandial 159 mg/dL (<140)
[2022-11-30 21:07] LABS: Chlamydia By Nucleic Acid AMP Negative (Negative)
[2022-11-30 22:36] LABS: Gonococcus By Nucleic Acid AMP Negative (Negative)
== END | disposition home or self-care (01) ==
PROVIDERS: Visit Provider Student in an Organized Health Care Education/Training Program
DX: Z39.2 Encounter for routine postpartum follow-up (principal); Z11.3 Encounter for screening for infections with a predominantly sexual mode of transmission
CPT/HCPCS: 36415; 82950; 87491; 87591